=== PATIENT | male | born 1945 | race Caucasian/White ===

== ENCOUNTER 2016-11-08 09:03 | Inpatient (IN) | payer MEDICARE, MEDICAID ==
[2016-11-08] MEDS ORDERED: NALOXONE HCL INJ 2 MG/2 ML DISP.SYRIN ONE (09:34)
--- NOTE | 2016-11-08 09:42 | ER Document Report ---
ED Cardiac - General Information source: Patient TRAVEL OUTSIDE OF THE [place] IN LAST 30 DAYS: No - HPI Patient complains to provider of: Chest pain, Shortness of breath Cardiac risk factors: Diabetes, Hypertension, Dyslipidemia Associated symptoms: Other - see notes above <TRENA CINTRON - Last Filed: 11/08/16 15:21> <MARGOT LOWRY - Last Filed: 11/13/16 21:15> - General Chief Complaint: Chest Pain Stated Complaint: ALTERED MENTAL STATUS Notes: 71 year old male with history of diabetes, hypertension, hyperlipidemia, and chronic lower back pain (medicated with pain medication) presents to the ED via EMS complaining of substernal chest pain that started at approximately 0745 this morning while he was sitting. Patient had an appointment with his primary care provider, Dr. Li, for blood work this morning. Patient had taken pain medication this morning and drove to his appointment. When the patient arrived, the nurse said the patient was altered and called EMS. Patient reports that he did not take any Aspirin today. 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 (TRENA CINTRON) - Related Data Allergies/Adverse Reactions: Sulfa (Sulfonamide Antibiotics) Allergy (Unknown, Verified 05/03/15 15:41) ciprofloxacin [From Cipro] Allergy (Verified 05/03/15 15:41) Home Medications: Current Home Medications Aspirin [Aspirin 81 mg Chewable Tablet] 81 mg PO DAILY 11/08/16 [History] Cholecalciferol (Vitamin D3) [Vitamin D3 1000 Unit Tablet] 1,000 unit PO DAILY 11/08/16 [History] Glipizide [Glipizide ER] 5 mg PO DAILY 11/08/16 [History] Insulin Glargine,Hum.rec.anlog [Lantus Solostar] 37 unit SQ QHS 11/08/16 [ History] Lisinopril [Prinivil 10 mg Tablet] 10 mg PO DAILY 11/08/16 [History] Lisinopril/Hydrochlorothiazide [Lisinopril-Hctz 20-25 mg Tab] 1 tab PO DAILY [History] Multivitamin [Tab-A-Kirti] 1 tab PO DAILY 11/08/16 [History] Oxycodone HCl [Oxy-Ir 5 mg Tablet] 15 mg PO QID 11/08/16 [History] Tizanidine HCl [Zanaflex 4 Mg Tablet] 4 mg PO BIDP PRN 11/08/16 [History] Past Medical History - General Information source: Patient - Social History Smoking Status: Never Smoker Family History: Reviewed & Not Pertinent - Past Medical History Cardiac Medical History: Reports: Hx Hypercholesterolemia - meds x 10 years, Hx Hypertension - meds x 15 years, Hx Pulmonary Embolism - 2013, post-op Neurological Medical History: Endocrine Medical History: Reports: Hx Diabetes Mellitus Type 2 Musculoskeltal Medical History: Reports Hx Arthritis Skin Medical History: Reports Hx Psoriasis Psychiatric Medical History: Reports: Hx Depression - Hx of, denies issues since 2012, Hx Post Traumatic Stress Disorder, Hx Schizophrenia - no meds at present, Dx'ed after ETOH cessation Past Surgical History: Reports: Hx Abdominal Surgery - Secondary to pancreatitis , Hx Cholecystectomy - lap , Hx Tonsillectomy - Immunizations Immunizations up to date: Yes Hx Diphtheria, Pertussis, Tetanus Vaccination: Yes Hx Pneumococcal Vaccination: 08/12/11 <TRENA CINTRON - Last Filed: 11/08/16 15:21> Review of Systems - Review of Systems Constitutional: No symptoms reported EENT: No symptoms reported Cardiovascular: See HPI, Chest pain Respiratory: No symptoms reported Gastrointestinal: No symptoms reported Genitourinary: No symptoms reported Male Genitourinary: No symptoms reported Musculoskeletal: No symptoms reported Skin: No symptoms reported Hematologic/Lymphatic: No symptoms reported Neurological/Psychological: No symptoms reported -: Yes All other systems reviewed and negative <TRENA CINTRON - Last Filed: 11/08/16 15:21> Physical Exam - General General appearance: Alert In distress: None - HEENT Head: Normocephalic, Atraumatic Eyes: Normal Extraocular movements intact: Yes Pupils: PERRL Mucous membranes: Dry - Respiratory Respiratory status: No respiratory distress Breath sounds: Other - diminished lung sounds. No: Normal - Cardiovascular Rhythm: Regular Heart sounds: Normal auscultation - Abdominal Inspection: Morbidly Obese. No: Normal Distension: No distension Tenderness: Nontender - Back Back: Normal - Extremities General upper extremity: Normal inspection, Normal ROM General lower extremity: Normal inspection, Normal ROM - Neurological Neuro grossly intact: Yes Cognition: Normal Orientation: AAOx4 Mao Coma Scale Eye Opening: Spontaneous [place] Coma Scale Verbal: Oriented [place] Coma Scale Motor: Obeys Commands Mao Coma Scale Total: 15 Speech: Normal - slow to respond - Psychological Associated symptoms: Normal affect, Normal mood - Skin Skin Temperature: Warm Skin Moisture: Dry Skin Color: Normal <SAIDATRENA - Last Filed: 11/08/16 15:21> Course - Laboratory Result Diagrams: 11/08/16 09:27 11/08/16 09:27 - Consults Dr. Burgos Time consulted: 09:29 Dr. Galeano Time consulted: 14:15 Dr. Goldman Time consulted: 14:20 <TRENA CINTRON - Last Filed: 11/08/16 15:21> - Laboratory Result Diagrams: 11/08/16 09:27 11/08/16 15:45 <MARGOT LOWRY - Last Filed: 11/13/16 21:15> - Re-evaluation Re-evalutation: 11/08/16 09:57 Manual blood pressure was taken at 0938 and recorded at 96/52. (TRENA CINTRON) 11/08/16 14:26 I personally performed the services described in the documentation, reviewed and edited the documentation which was dictated to my scribe in my presence, and it accurately records my words and actions. presents emergency per minute initially via EMS from his doctor's office chief plain of altered mental status. Patient has an extensive past medical history. Initially he was saying he was having chest pain and he said he had back pain it was very poor historian as he was altered. EKG showed some ST elevation in 2-3 with flipped T waves in aVR I sent this immediately to Dr. Gleason who evaluated the EKG and said it was non-STEMI and to check for pericarditis. Further assess the patient for altered mental status was hypotensive when order CT of the head which is negative labs came back you have acute renal failure with a BUN/creatinine a 64 4.08 a potassium of 6.1. He's had a liter of fluids he's had a 750 mL out maintaining a blood pressure [address] Hernandez nephrology hypotension acute renal failure hyperkalemia chest pain with negative troponin she is on consultation spoke with Dr. Goldman is accepted patient the IMCU unit. (MARGOT LOWRY) - Vital Signs Vital signs: Temp Pulse Resp BP Pulse Ox 97.4 F 73 11 L 114/64 98 11/08/16 19:15 11/08/16 18:17 11/08/16 18:40 11/08/16 18:40 11/08/16 19:15 - Laboratory Laboratory results interpreted by me: 11/08/16 11/08/16 11/08/16 09:27 09:27 09:27 RBC 3.47 L Hgb 11.2 L Hct 33.0 L RDW 14.1 H Monocytes % 14.3 H ESR 32 H Potassium 6.1 H* Carbon Dioxide 20 L BUN 64 H Creatinine 4.08 H Est GFR ( Amer) 18 L Est GFR (Non-Af Amer) 15 L Glucose 124 H Lactic Acid Direct Bilirubin 0.5 H CK-MB (CK-2) 5.79 H C-Reactive Protein 78.4 H Total Protein 6.0 L Acetaminophen < 10 L 11/08/16 10:15 RBC Hgb Hct RDW Monocytes % ESR Potassium Carbon Dioxide BUN Creatinine Est GFR ( Amer) Est GFR (Non-Af Amer) Glucose Lactic Acid 3.4 H Direct Bilirubin CK-MB (CK-2) C-Reactive Protein Total Protein Acetaminophen - Consults Dr. Burgos Reason for consultation: 11/08/16 09:29 Patient was discussed with Dr. Burgos to discuss possible STEMI and EKG changes. Dr. Burgos asks for the EKG to be brought to him at the ICU. 11/08/16 09:45 Dr. Burgos states that this is likely not a STEMI. (TRENA CINTRON) Dr. Galeano Reason for consultation: 11/08/16 14:15 Dr. Galeano was paged. 11/08/16 Patient was discussed with Dr. Galeano and advises to admit the patient to the hospitalist. (TRENA CINTRON) Dr. Goldman Reason for consultation: 11/08/16 14:20 Patient was discussed with Dr. Goldman and agrees to admit the patient. (TRENA CINTRON) Critical Care Note - Critical Care Note Total time excluding time spent on procedures (mins): 60 <MARGOT LOWRY - Last Filed: 11/13/16 21:15> Discharge <TRENA CINTRON - Last Filed: 11/08/16 15:21> - Discharge Admitting Provider: Hospitalist Unit Admitted: IMCU <MARGOT LOWRY - Last Filed: 11/13/16 21:15> - Discharge Clinical Impression: Hyperkalemia, chest pain Acute renal failure Qualifiers: Acute renal failure type: unspecified Qualified Code(s): N17.9 - Acute kidney failure, unspecified Condition: Stable Disposition: ADMITTED INPATIENT Scribe Documentation - Scribe Written by Scribe:: Ian Chapa, 11/08/2016 0953 acting as scribe for :: Caden <TRENA CINTRON - Last Filed: 11/08/16 15:21>
[2016-11-08] MEDS ORDERED: LORAZEPAM INJ 2 MG/1 ML VIAL ONE (10:02)
[2016-11-08 10:27] LABS: ABSOLUTE EOSINOPHILS # (AUTO) 0.1 10^3/uL (0.0-0.6); ABSOLUTE LYMPHOCYTES (AUTO) 2.3 10^3/uL (0.5-4.7); ABSOLUTE MONOCYTES (AUTO) 1.3 10^3/uL (0.1-1.4); ABSOLUTE NEUT (AUTO) 5.6 10^3/uL (1.7-8.2); BASOPHILS % (AUTO) 0.5 % (0-2); EOSINOPHILS % (AUTO) 1.4 % (0-6); HEMOGLOBIN 11.2 g/dL (13.5-17.0); HGB HCT DIFFERENCE 0.6; LYMPHOCYTES % (AUTO) 24.2 % (13-45); MEAN CORPUSCULAR HEMOGLOBIN 32.2 pg (27.0-33.4); MEAN CORPUSCULAR HGB CONC 33.9 g/dL (32.0-36.0); MEAN CORPUSCULAR VOLUME 95 fl (80-97); MONOCYTES % (AUTO) 14.3 % (3-13); RED BLOOD COUNT 3.47 10^6/uL (4.35-5.55); RED CELL DISTRIBUTION WIDTH 14.1 % (11.5-14.0); SEGMENTED NEUTROPHILS % (AUTO) 59.6 % (42-78); WHITE BLOOD COUNT 9.4 10^3/uL (4.0-10.5)
[2016-11-08 11:02] LABS: ERYTHROCYTE SEDIMENTATION RATE 32 mm/hr (0-20)
[2016-11-08 11:10] LABS: ALANINE AMINOTRANSFERASE 36 U/L (21-72); ALBUMIN 3.6 g/dL (3.5-5.0); ALCOHOL < 10 mg/dL (NONE DETECTED); ALKALINE PHOSPHATASE 65 U/L (38-126); ANION GAP 19 (5-19); ASPARTATE AMINO TRANSFERASE 33 U/L (17-59); BILIRUBIN,DIRECT 0.5 mg/dL (0.0-0.4); BLOOD UREA NITROGEN 64 mg/dL (7-20); C-REACTIVE PROTEIN 78.4 mg/L (<10.0); CALCIUM 9.7 mg/dL (8.4-10.2); CARBON DIOXIDE 20 mmol/L (22-30); CHLORIDE 101 mmol/L (98-107); CREATININE RESULT 4.08 mg/dL (0.52-1.25); GLUCOSE 124 mg/dL (75-110); LIPASE 47.2 U/L (23-300); SODIUM 140.2 mmol/L (137-145)
[2016-11-08 11:11] LABS: POTASSIUM 6.1 mmol/L (3.6-5.0)
[2016-11-08 11:19] LABS: CREATINE KINASE MB 5.79 ng/mL (<4.55)
[2016-11-08 11:21] LABS: TROPONIN I < 0.012 ng/mL
[2016-11-08] MEDS ORDERED: SODIUM POLYSTYRENE SULFONATE 15 GM/60 ML PO ONE ×2 (11:23→18:00)
[2016-11-08] MEDS ORDERED: CALCIUM GLUCONATE 1000 MG/10 ML INJ IV ONE (11:24)
[2016-11-08] MEDS ORDERED: NORMAL SALINE 500 ML IV ONE ×2 (12:59→14:28)
[2016-11-08 13:54] LABS: APPEARANCE,URINE SLIGHTLY-CLOUDY; BILIRUBIN,URINE NEGATIVE (NEGATIVE); GLUCOSE, URINE NEGATIVE (NEGATIVE); KETONES,URINE NEGATIVE (NEGATIVE); LEUKOCYTE ESTERASE,URINE NEGATIVE (NEGATIVE); NITRITE,URINE NEGATIVE (NEGATIVE); PROTEIN,URINE NEGATIVE (NEGATIVE); URINE SPECIFIC GRAVITY 1.013; UROBILINOGEN,URINE NEGATIVE mg/dL (<2.0)
[2016-11-08] MEDS ORDERED: ASPIRIN 81 MG TABLET, CHEWABLE ONE (14:16)
[2016-11-08] MEDS ORDERED: NORMAL SALINE 1000 ML 1,000 ML IV ONE ×2 (15:00→15:34)
[2016-11-08 16:13] LABS: ANION GAP 16 (5-19); BLOOD UREA NITROGEN 57 mg/dL (7-20); CALCIUM 9.4 mg/dL (8.4-10.2); CARBON DIOXIDE 20 mmol/L (22-30); CHLORIDE 106 mmol/L (98-107); CREATININE RESULT 3.18 mg/dL (0.52-1.25); GLUCOSE 93 mg/dL (75-110); POTASSIUM 5.8 mmol/L (3.6-5.0); SODIUM 141.6 mmol/L (137-145)
[2016-11-08] MEDS ORDERED: VANCOMYCIN HCL 750 MG in DEXTROSE 5%-WATER 250 ML IV ONE (16:24)
[2016-11-08] MEDS ORDERED: OXYCODONE HCL IR 5 MG TABLET PO ONE (16:30)
[2016-11-08] MEDS ORDERED: NORMAL SALINE 1000 ML 1,000 ML IV PRN (16:50)
--- NOTE | 2016-11-08 17:26 | PDOC H&P/TRANSFER SUM ---
General Admission Date/PCP: 11/08/16 14:36 WNISOME SHOOK MD Transfer Date: 11/08/16 [facility] Accepting Physician: Dr Amezcua Resuscitation Status: Full Code Chief Complaint: Crushing chest pain; confusion Near-syncope Hypotension - Transfer Diagnosis (1) Septic shock Current Visit: Yes (2) Abnormal EKG Current Visit: Yes (3) Acute renal failure Current Visit: Yes (4) Altered mental status Current Visit: Yes (5) Chest pain Current Visit: Yes (6) Acute pericarditis Current Visit: Yes - Transfer Medications Home Medications: Aspirin [Aspirin 81 mg Chewable Tablet] 81 mg PO DAILY 11/08/16 Cholecalciferol (Vitamin D3) [Vitamin D3 1000 Unit Tablet] 1,000 unit PO DAILY 11/08/16 Glipizide [Glipizide ER] 5 mg PO DAILY 11/08/16 Insulin Glargine,Hum.rec.anlog [Lantus Solostar] 37 unit SQ QHS 11/08/16 Lisinopril [Prinivil 10 mg Tablet] 10 mg PO DAILY 11/08/16 Lisinopril/Hydrochlorothiazide [Lisinopril-Hctz 20-25 mg Tab] 1 tab PO DAILY Multivitamin [Tab-A-Kirti] 1 tab PO DAILY 11/08/16 Oxycodone HCl [Oxy-Ir 5 mg Tablet] 15 mg PO QID 11/08/16 Tizanidine HCl [Zanaflex 4 Mg Tablet] 4 mg PO BIDP PRN 11/08/16 Transfer Medications: Current Medications Hard Fat/Phenylephrine 40 mg/ (Dextrose) 254 mls @ 0 mls/hr IV CONTINUOUS PRN; Protocol; Titrate PRN Reason: THIS MED IS NOT "PRN" Stop: 12/08/16 16:22 Piperacillin Sod/Tazobactam (Sod 2.25 gm/ Sodium Chloride) 50 mls @ 100 mls/hr IV Q6 MIGUEL Stop: 11/15/16 17:59 Vancomycin HCl 750 mg/ (Dextrose) 250 mls @ 166.667 mls/hr IV NOW ONE Stop: 11/08/16 17:53 Sodium Chloride (Nacl 0.9% 1000 Ml Iv Soln) 1,000 mls @ 150 mls/hr IV CONTINUOUS PRN PRN Reason: THIS MED IS NOT "PRN" Stop: 12/08/16 16:49 Oxycodone HCl (Oxy-Ir 5 Mg Tablet) 15 mg PO QID MIGUEL Stop: 11/15/16 21:59 - Allergies Allergies/Adverse Reactions: Sulfa (Sulfonamide Antibiotics) Allergy (Unknown, Verified 05/03/15 15:41) ciprofloxacin [From Cipro] Allergy (Verified 05/03/15 15:41) History of Present Illness Admission Date/PCP: 11/08/16 14:36 WINSOME SHOOK MD Patient complains of: Hypotension. Confusion. Chest pain History of Present Illness: SATHISH ORNELAS is a 71 year old male With a known history of diabetes mellitus type II, pancreatitis who presented to Dr. Li's office today While in the office patient had crushing chest pain; he became extremely confused; he was found to be hypotensive with systolic of 80 He was subsequently sent to the ED for evaluation and care In the ED he was found still hypotensive; the chest pain had resolved completely ; the blood pressure fluctuated and after 3000 mL of normal saline is systolic was still 85 An EKG was performed and repeated Showed [address] elevation in 2- 3- aVF without reciprocal changes Troponins remained negative less than 0.012 An echocardiogram excluded pericardial effusion Past Medical History Cardiac Medical History: Reports: Hyperlipidema - meds x 10 years, Hypertension - meds x 15 years, Pulmonary Embolism - 2012, post-op Denies: Atrial Fibrillation, Congestive Heart Failure, Coronary Artery Disease, Myocardial Infarction, Peripheral Vascular Disease, Heart Murmur Pulmonary Medical History: Denies: Asthma, Bronchitis, Chronic Obstructive Pulmonary Disease (COPD), Pneumonia, Respiratory Failure, Sleep Apnea, Tuberculosis Neurological Medical History: Endocrine Medical History: Reports: Diabetes Mellitus Type 1, Diabetes Mellitus Type 2 Denies: Hyperthyroidism, Hypothyroidism Malignancy Medical History: Denies: Leukemia, Lung Cancer GI Medical History: Reports: Other - Pancreatitis Denies: Crohn's Disease, Gastroesophageal Reflux Disease, Hiatal Hernia Musculoskeltal Medical History: Reports: Arthritis Denies: Fibromyalgia Skin Medical History: Reports: Psoriasis Psychiatric Medical History: Reports: Depression - Hx of, denies issues since 2012, Post Traumatic Stress Disorder Denies: Bipolar Disorder Hematology: Reports: Anemia - transfusion 2012, post-op Denies: Hemophilia, Sickle Cell Disease Infectious Medical History: Denies: HIV Past Surgical History Past Surgical History: Reports: Cholecystectomy - lap , Tonsillectomy Denies: Appendectomy, Colostomy, Coronary Artery Bypass Graft, Gastric Bypass Surgery, Herniorrhaphy, Pacemaker Social History Information Source: Patient Lives with: Alone Smoking Status: Never Smoker Frequency of Alcohol Use: None Hx Recreational Drug Use: No - per Dr Shook's note, Hx of prior use of: Drugs: None Hx Prescription Drug Abuse: No - Advance Directive Resuscitation Status: Full Code Surrogate healthcare decision maker:: His sister Torri Family History Family History: Reviewed & Not Pertinent, DM, Malignancy - Lungs CTA, Other - CHF Parental Family History Reviewed: Yes Children Family History Reviewed: Yes Sibling(s) Family History Reviewed.: Yes Review of Systems Constitutional: ABSENT: chills, fever(s) Cardiovascular: PRESENT: chest pain - Was severe and crushing earlier this morning has resolved now Respiratory: ABSENT: cough, dyspnea, hemoptysis Gastrointestinal: PRESENT: abdominal pain - Suprapubic pain Musculoskeletal: ABSENT: back pain, muscle weakness Integumentary: ABSENT: rash, wounds Neurological: ABSENT: abnormal gait, abnormal speech, confusion, dizziness, focal weakness, syncope Psychiatric: ABSENT: anxiety, depression, homidical ideation, suicidal ideation Hematologic/Lymphatic: ABSENT: easy bleeding, easy bruising Physical Exam Vital Signs: Temp Pulse Resp BP Pulse Ox 98.0 F 66 10 L 114/57 L 97 11/08/16 09:33 11/08/16 09:33 11/08/16 14:40 11/08/16 14:40 11/08/16 14:40 General appearance: PRESENT: morbidly obese, other - Looks ill alert and awake Head exam: PRESENT: atraumatic, normocephalic Eye exam: PRESENT: conjunctiva pink, EOMI, PERRLA. ABSENT: scleral icterus Neck exam: ABSENT: carotid bruit, JVD, lymphadenopathy, thyromegaly Respiratory exam: PRESENT: clear to auscultation michela. ABSENT: rales, rhonchi, wheezes Cardiovascular exam: PRESENT: RRR. ABSENT: diastolic murmur, rubs, systolic murmur Pulses: PRESENT: normal dorsalis pedis pul GI/Abdominal exam: PRESENT: distended, other - Obese. ABSENT: guarding Extremities exam: PRESENT: full ROM. ABSENT: calf tenderness, clubbing, pedal edema Neurological exam: PRESENT: alert, awake, oriented to person, oriented to place , oriented to time, oriented to situation, CN II-XII grossly intact. ABSENT: motor sensory deficit Skin exam: PRESENT: dry, intact, warm. ABSENT: cyanosis, rash Results Laboratory Results: 11/08/16 15:45 11/08/16 11/08/16 15:45 15:45 Sodium 141.6 Potassium 5.8 H Chloride 106 Carbon Dioxide 20 L Anion Gap 16 BUN 57 H Creatinine 3.18 H Est GFR ( Amer) 24 L Est GFR (Non-Af Amer) 19 L Glucose 93 Lactic Acid 2.1 Calcium 9.4 11/08/16 15:45 Troponin I < 0.012 Labs- All tests 24 hr 11/08/16 11/08/16 11/08/16 09:27 09:27 09:27 WBC 9.4 RBC 3.47 L Hgb 11.2 L Hct 33.0 L MCV 95 MCH 32.2 MCHC 33.9 RDW 14.1 H Plt Count 158 Seg Neutrophils % 59.6 Lymphocytes % 24.2 Monocytes % 14.3 H Eosinophils % 1.4 Basophils % 0.5 Absolute Neutrophils 5.6 Absolute Lymphocytes 2.3 Absolute Monocytes 1.3 Absolute Eosinophils 0.1 Absolute Basophils 0.0 ESR 32 H Sodium 140.2 Potassium 6.1 H* Chloride 101 Carbon Dioxide 20 L Anion Gap 19 BUN 64 H Creatinine 4.08 H Est GFR ( Amer) 18 L Est GFR (Non-Af Amer) 15 L Glucose 124 H POC Glucose Lactic Acid Calcium 9.7 Total Bilirubin 1.0 Direct Bilirubin 0.5 H Indirect Bilirubin Not Reportable Neonat Total Bilirubin Not Reportable AST 33 ALT 36 Alkaline Phosphatase 65 CK-MB (CK-2) 5.79 H Troponin I < 0.012 C-Reactive Protein 78.4 H NT-Pro-B Natriuret Pep 377 Total Protein 6.0 L Albumin 3.6 Lipase 47.2 Urine Color Urine Appearance Urine pH Ur Specific [place] Urine Protein Urine Glucose (UA) Urine Ketones Urine Blood Urine Nitrite Urine Bilirubin Urine Urobilinogen Ur Leukocyte Esterase Urine WBC (Auto) Urine RBC (Auto) U Hyaline Cast (Auto) Urine Bacteria (Auto) Urine Mucus (Auto) Urine Ascorbic Acid Acetaminophen < 10 L Serum Alcohol < 10 11/08/16 11/08/16 11/08/16 09:36 10:15 13:39 WBC RBC Hgb Hct MCV MCH MCHC RDW Plt Count Seg Neutrophils % Lymphocytes % Monocytes % Eosinophils % Basophils % Absolute Neutrophils Absolute Lymphocytes Absolute Monocytes Absolute Eosinophils Absolute Basophils ESR Sodium Potassium Chloride Carbon Dioxide Anion Gap BUN Creatinine Est GFR ( Amer) Est GFR (Non-Af Amer) Glucose POC Glucose 107 Lactic Acid 3.4 H Calcium Total Bilirubin Direct Bilirubin Indirect Bilirubin Neonat Total Bilirubin AST ALT Alkaline Phosphatase CK-MB (CK-2) Troponin I C-Reactive Protein NT-Pro-B Natriuret Pep Total Protein Albumin Lipase Urine Color YELLOW Urine Appearance SLIGHTLY-CLOUDY Urine pH 5.0 Ur Specific [place] 1.013 Urine Protein NEGATIVE Urine Glucose (UA) NEGATIVE Urine Ketones NEGATIVE Urine Blood NEGATIVE Urine Nitrite NEGATIVE Urine Bilirubin NEGATIVE Urine Urobilinogen NEGATIVE Ur Leukocyte Esterase NEGATIVE Urine WBC (Auto) 3 Urine RBC (Auto) 1 U Hyaline Cast (Auto) 4 Urine Bacteria (Auto) TRACE Urine Mucus (Auto) RARE Urine Ascorbic Acid NEGATIVE Acetaminophen Serum Alcohol 11/08/16 11/08/16 11/08/16 15:45 15:45 15:45 WBC RBC Hgb Hct MCV MCH MCHC RDW Plt Count Seg Neutrophils % Lymphocytes % Monocytes % Eosinophils % Basophils % Absolute Neutrophils Absolute Lymphocytes Absolute Monocytes Absolute Eosinophils Absolute Basophils ESR Sodium 141.6 Potassium 5.8 H Chloride 106 Carbon Dioxide 20 L Anion Gap 16 BUN 57 H Creatinine 3.18 H Est GFR ( Amer) 24 L Est GFR (Non-Af Amer) 19 L Glucose 93 POC Glucose Lactic Acid 2.1 Calcium 9.4 Total Bilirubin Direct Bilirubin Indirect Bilirubin Neonat Total Bilirubin AST ALT Alkaline Phosphatase CK-MB (CK-2) Troponin I < 0.012 C-Reactive Protein NT-Pro-B Natriuret Pep Total Protein Albumin Lipase Urine Color Urine Appearance Urine pH Ur Specific [place] Urine Protein Urine Glucose (UA) Urine Ketones Urine Blood Urine Nitrite Urine Bilirubin Urine Urobilinogen Ur Leukocyte Esterase Urine WBC (Auto) Urine RBC (Auto) U Hyaline Cast (Auto) Urine Bacteria (Auto) Urine Mucus (Auto) Urine Ascorbic Acid Acetaminophen Serum Alcohol EKG Comments: NSR ST elevation 2-3 -avf no reciprocal changes Impressions: Head CT 11/08/16 09:50 IMPRESSION: MILD CHRONIC CHANGES OF ATROPHY AND MICROVASCULAR ISCHEMIA. NO ACUTE PROCESS. Chest X-Ray 11/08/16 12:44 IMPRESSION: Minimal bandlike opacity left retrocardiac region atelectasis or scarring. This is unchanged from 06/16/2016 Assessment & Plan - Time Time Spent: Greater than 70 Minutes - Plan Summary Plan Summary: 1- hypotension Likely to be secondary to septic shock and hypovolemic shock Patient was given extreme 3000 mL fluid bolus Richard-Synephrine drip was initiated Continue IV fluids at 150 mL/h and reevaluate patient's needs 2- sepsis Source of sepsis unclear; patient is complaining of some abdominal pain and is in acute renal failure, We will order stat CT abdomen and pelvis without contrast to exclude post obstructive uropathy And any acute abdominal pathology Noted that the patient's abdomen is extremely distended and obese and is difficult to examine 3-abnormal EKG ST elevation on precordial lead without reciprocal changes Echo performed showed no pericardial effusion and normal EF troponins negative <0.015 ? acute pericarditis secondary to acute renal failure transfer to higher level of care
[2016-11-08] MEDS ORDERED: PIPERACILLIN SODIUM/TAZOBACTAM 2.25 GM in NORMAL SALINE 50 ML IV SCH (18:00)
[2016-11-08] MEDS ORDERED: DEXTROSE 5%-WATER 250 ML with PHENYLEPHRINE HCL 40 MG IV PRN ×2 (18:00)
--- NOTE | 2016-11-08 18:03 | Operative Report ---
Operative Report DATE OF SURGERY: 11/08/16 PREOPERATIVE DIAGNOSIS: Hypotension, critical need for central venous access POSTOPERATIVE DIAGNOSIS: Same OPERATION: Attempted right subclavian central venous catheter placement. Right femoral triple-lumen central venous catheter placement. SURGEON: OMID AJY ANESTHESIA: Local TISSUE REMOVED OR ALTERED: None COMPLICATIONS: None ESTIMATED BLOOD LOSS: 40 mL INTRAOPERATIVE FINDINGS: Able to cannulate right subclavian vein but unable to feed guidewire. PROCEDURE: Informed consent was obtained. Procedure was done at patient's bedside. Patient's right chest and neck were prepped and draped in usual sterile fashion. Local anesthetic was administered. The right subclavian vein was entered with a needle but I was unable to pass guidewire. I was able to aspirate blood intermittently varying with his respirations. The needle was withdrawn and repositioned and I aspirated air. It is possible that the needle was not seated securely onto the syringe when I aspirated air. Patient had no respiratory symptoms. Stat portable chest x-ray demonstrated no evidence of pneumothorax. His lungs were clear with equal breath sounds with no crepitus. And the patient continued to have no respiratory symptoms. This site was abandoned and the patient's right groin was prepped and draped in usual sterile fashion. Local anesthetic was injected. The right femoral vein was entered without difficulty. Right femoral triple-lumen central venous catheter was placed via the Seldinger technique. It withdrew blood and flushed easily. IV bag was attached and IV fluids ran easily through the line. It was sutured in place. Dressings were applied. Patient tolerated procedure well with no apparent complications.
--- NOTE | 2016-11-08 18:05 | XCELERA REPORT ---
[address] [address] Transthoracic Echocardiogram Report Name: SATHISH ORNELAS Age: 71 yrs Gender: Male : 1945 Patient Status: Inpatient Patient Location: \S\10\S\A Study Date: 11/08/2016 04:20 PM Height: 67 in Weight: 230 lb BSA: 2.1 m2 Procedure: A two-dimensional transthoracic echocardiogram with color flow and Doppler was performed. Study Quality: Fair. Reason For Study: pericarditis History: pericarditis. Ordering Physician: CHARLOTTE ANDRADE Performed By: Angela Mahoney Interpretation Summary The left ventricle is normal in size. There is normal left ventricular wall thickness. Left ventricular systolic function is normal. LV EF is > than 65%.% Doppler measurements suggest impaired left ventricular relaxation, which is associated with grade I/IV or mild diastolic dysfunction The left ventricular wall motion is normal. There is no thrombus. The right ventricle is grossly normal size. The right ventricle is not well visualized secondary to technical limitations The right atrium is normal. The left atrial size is normal. The interatrial septum is intact with no evidence for an atrial septal defect. There is no evidence of mitral valve prolapse. There is no mitral valve stenosis. There is a mild to moderate amount of mitral regurgitation There is no aortic valve stenosis There is no LVOT obstruction. No aortic regurgitation is present. There is no tricuspid stenosis. There is a mild amount of tricuspid regurgitation There is moderate pulmonary hypertension by echo RVSP is 48 to 53 mm of Hg with RA mean of 5 to 10. There is no pericardial effusion. MMode/2D Measurements \T\ Calculations RVDd: 3.6 cm LVIDd: 5.2 cm FS: 48.9 % Ao root diam: 2.7 cm IVSd: 1.1 cm LVIDs: 2.7 cm EDV(Teich): 129.9 ml LVPWd: 1.1 cm ESV(Teich): 26.1 ml Ao root area: 5.9 cm2 EF(Teich): 79.9 % LA dimension: 3.9 cm Doppler Measurements \T\ Calculations MV E max bam: MV P1/2t max bam: Ao V2 max: LV V1 max P.2 cm/sec 125.2 cm/sec 176.3 cm/sec 7.0 mmHg MV A max bam: MV P1/2t: 80.2 msec Ao max PG: LV V1 max: 143.8 cm/sec 12.4 mmHg 132.7 cm/sec MV E/A: 0.87 MVA(P1/2t): 2.7 cm2 MV dec slope: 457.4 cm/sec2 MV dec time: 0.28 sec PA V2 max: PI end-d bam: TR max bam: 87.4 cm/sec 168.3 cm/sec 324.6 cm/sec PA max PG: TR max P.1 mmHg 42.1 mmHg Left Ventricle The left ventricle is normal in size. There is normal left ventricular wall thickness. Left ventricular systolic function is normal. LV EF is > than 65%.%. Doppler measurements suggest impaired left ventricular relaxation, which is associated with grade I/IV or mild diastolic dysfunction. The left ventricular wall motion is normal. There is no thrombus. There is no ventricular septal defect visualized. Right Ventricle The right ventricle is grossly normal size. The right ventricle is not well visualized secondary to technical limitations. Atria The right atrium is normal. The left atrial size is normal. The interatrial septum is intact with no evidence for an atrial septal defect. Mitral Valve There is no evidence of mitral valve prolapse. There is no vegetation seen on the mitral valve. There is no mitral valve stenosis. There is a mild to moderate amount of mitral regurgitation. Aortic Valve There is no aortic valvular vegetation. There is no aortic valve stenosis. There is no LVOT obstruction. No aortic regurgitation is present. Tricuspid Valve There is no tricuspid stenosis. There is a mild amount of tricuspid regurgitation. There is moderate pulmonary hypertension by echo. RVSP is 48 to 53 mm of Hg with RA mean of 5 to 10. Pulmonic Valve There is no pulmonic valvular stenosis. There is a trace amount of pulmonic regurgitation. Great Vessels The aortic root is normal size. The inferior vena cava appeared normal and decreased > 50% with respiration (RAP 5-10 mmHg). Effusions There is no pericardial effusion. : CHARLOTTE ANDRADE > Melva Bates
[2016-11-08 19:15] VITALS: BP 114/64
--- NOTE | 2016-11-08 20:44 | EKG REPORT ---
SEVERITY:- ABNORMAL ECG - SINUS RHYTHM BORDERLINE ST ELEVATION, INFERIOR LEADS : Confirmed by: Kerline Gleason 08-Nov-2016 20:43:48
--- NOTE | 2016-11-08 20:44 | EKG REPORT ---
SEVERITY:- BORDERLINE ECG - SINUS RHYTHM BORDERLINE ST ELEVATION, INFERIOR LEADS : Confirmed by: Kerline Gleason 08-Nov-2016 20:43:57
[2016-11-08] MEDS ORDERED: OXYCODONE HCL IR 5 MG TABLET PO SCH (22:00)
== END 2016-11-08 19:00 | disposition short-term general hospital (02) | DRG 871 ==
LOC: ER 09:03 → EH 14:36
PROVIDERS: ADMIT Internal Medicine; ATTEND Internal Medicine
PROC: 06HM33Z Insertion of Infusion Device into Right Femoral Vein, Percutaneous Approach (ICD-10-PCS; principal; 2016-11-08)
DX: A41.9 Sepsis, unspecified organism (principal); R65.21 Severe sepsis with septic shock; N17.9 Acute kidney failure, unspecified; I30.9 Acute pericarditis, unspecified; E11.9 Type 2 diabetes mellitus without complications; E78.5 Hyperlipidemia, unspecified; I10 Essential (primary) hypertension; M19.90 Unspecified osteoarthritis, unspecified site; L40.9 Psoriasis, unspecified; F32.9 Major depressive disorder, single episode, unspecified; F43.10 Post-traumatic stress disorder, unspecified; E66.01 Morbid (severe) obesity due to excess calories; G89.29 Other chronic pain; M54.5 Low back pain; Z60.2 Problems related to living alone; Z79.82 Long term (current) use of aspirin; Z79.899 Other long term (current) drug therapy; Z88.2 Allergy status to sulfonamides; Z88.3 Allergy status to other anti-infective agents; Z79.4 Long term (current) use of insulin; Z86.711 Personal history of pulmonary embolism; Z90.49 Acquired absence of other specified parts of digestive tract; Z83.3 Family history of diabetes mellitus; Z80.1 Family history of malignant neoplasm of trachea, bronchus and lung
CPT/HCPCS: 36415; 70450; 71010; 71020; 80048; 80053; 80307; 81001; 82553; 82962; 83605; 83690; 83880; 84484; 85025; 85652; 86140; 93005; 93010; 93306; C1751; J0610; J2310; J7030; J7040

== ENCOUNTER 2017-03-19 23:50 | Emergency (ER) | payer MEDICARE ==
[2017-03-20 00:10] VITALS: BP 108/59
[2017-03-20] MEDS ORDERED: DEXAMETHASONE SOD PHOS INJ 10 MG/1 ML VIAL IM ONE (02:11)
--- NOTE | 2017-03-20 02:12 | ER Document Report ---
ED Skin Rash/Insect Bite/Abscs - General Mode of Arrival: Ambulatory Information source: Patient TRAVEL OUTSIDE OF THE [place] IN LAST 30 DAYS: No - HPI Onset: Other - Refer to HPI notes Similar symptoms previously: No Recently seen / treated by doctor: No - General Chief Complaint: Skin Problem Stated Complaint: RASH Time Seen by Provider: 03/20/17 01:42 Notes: Patient is a 61-year-old male presenting to the emergency department for a rash. Patient states he was alleviating a week ago and thinks he came in contact with some poison zandra. Patient states that his symptoms have gotten worse over the past few days. Patient had a rash to forearms bilaterally as well as his right knee. Patient is a type II diabetic and takes both metformin and insulin. Patient also has hypertension and being medicated for such. Patient has chronic back pain and knee problems and prescribed oxycodone 15 mg from his pain management doctor. PCP Dr. Li ([facility]) - Related Data Allergies/Adverse Reactions: Sulfa (Sulfonamide Antibiotics) Allergy (Unknown, Verified 05/03/15 15:41) ciprofloxacin [From Cipro] Allergy (Verified 05/03/15 15:41) Past Medical History - General Information source: Patient - Social History Smoking Status: Never Smoker Family History: DM, Malignancy - Lungs CTA, Other - CHF Patient has suicidal ideation: No Patient has homicidal ideation: No - Past Medical History Cardiac Medical History: Reports: Hx Hypercholesterolemia - meds x 10 years, Hx Hypertension - meds x 15 years, Hx Pulmonary Embolism - 2013, post-op Neurological Medical History: Endocrine Medical History: Reports: Hx Diabetes Mellitus Type 1, Hx Diabetes Mellitus Type 2 Musculoskeltal Medical History: Reports Hx Arthritis Skin Medical History: Reports Hx Psoriasis Psychiatric Medical History: Reports: Hx Depression - Hx of, denies issues since 2012, Hx Post Traumatic Stress Disorder, Hx Schizophrenia - no meds at present, Dx'ed after ETOH cessation Past Surgical History: Reports: Hx Abdominal Surgery - Secondary to pancreatitis , Hx Cholecystectomy - lap , Hx Tonsillectomy - Immunizations Immunizations up to date: Yes Hx Diphtheria, Pertussis, Tetanus Vaccination: Yes Hx Pneumococcal Vaccination: 08/12/11 Review of Systems - Review of Systems Constitutional: No symptoms reported EENT: No symptoms reported Cardiovascular: No symptoms reported Respiratory: No symptoms reported Gastrointestinal: No symptoms reported Genitourinary: No symptoms reported Male Genitourinary: No symptoms reported Musculoskeletal: No symptoms reported Skin: See HPI, Rash Hematologic/Lymphatic: No symptoms reported Neurological/Psychological: No symptoms reported -: Yes All other systems reviewed and negative Physical Exam - Vital signs Interpretation: Normal - Vital signs Vitals: Temp Pulse Resp BP Pulse Ox 97.6 F 76 20 108/59 L 97 03/20/17 00:08 03/20/17 00:08 03/20/17 00:08 03/20/17 00:08 03/20/17 00:08 - Notes Notes: GENERAL: Alert, interacts well. Mild distress. HEAD: Normocephalic, atraumatic. EYES: Appear normal. Pupils equal, round, and reactive to light. ENT: Moist mucus membranes, tongue midline. NECK: Full range of motion. Supple. Trachea midline. LUNGS: Clear to auscultation bilaterally, no wheezes, rales, or rhonchi. No respiratory distress. HEART: Regular rate and rhythm. No murmurs, gallops, or rubs. ABDOMEN: Soft, non-tender. Non-distended. Normal bowel sounds. EXTREMITIES: Moves all 4 extremities spontaneously. Normal strength. No edema. NEUROLOGICAL: Alert and oriented x3. Normal speech. No focal neurological deficits. GSC 15. PSYCH: Normal affect, normal mood. SKIN: Warm, dry, normal turgor. Extensive contact dermatitis of [place] poison zandra bilateral forearms and left lower extremity with weeping lesions. No crepitus, necrosis or sign of infection. (ALMA NAJERA) Discharge - Discharge Clinical Impression: severe bilateral contact dermatitis Condition: Stable Disposition: HOME, SELF-CARE Additional Instructions: Poison Zandra Poison zandra and poison oak can cause an itchy rash. This is called contact dermatitis. It's an allergy to an oil in the plant's leaves. The oil can be spread from clothing to skin, from pets to humans, or from one spot on the body to another. Washing thoroughly with soap immediately after exposure can prevent the rash. (Clothing should be washed as well.) If the oil is not removed, an itchy rash develops a few days after the exposure. Blisters may develop. Two to three weeks may be required for healing. Generally, treatment consists of: (1) an immediate thorough washing with soap to remove the oil, (2) application of a cortisone cream, and (3) antihistamines for itching. If the reaction is particularly severe, oral cortisone medicine may be required. If there are oozing areas, these can be soaked in epsom salts or Janee's solution. Call the doctor if the rash worsens despite treatment, or if signs of infection occur such as spreading redness, red streaks, swollen glands, swelling , or fever. Follow-up with your primary care physician in 2-3 days return for increasing worsening or new symptoms Prescriptions: Prednisone [Deltasone 20 mg Tablet] 3 tab PO DAILY 5 Days Scribe Attestation: 03/20/17 02:13 I personally performed the services described in the documentation reviewed the documentation recorded by my scribe in my presence and it accurately and completely records my words and actions (MARGOT LOWRY) Scribe Documentation - Scribe Written by Ian:: Ian Wise, 03/20/17 5:10 acting as scribe for :: Caden
== END 2017-03-20 02:35 | disposition home or self-care (01) ==
LOC: ER 23:50
DX: L25.9 Unspecified contact dermatitis, unspecified cause (principal); E11.9 Type 2 diabetes mellitus without complications; Z79.84 Long term (current) use of oral hypoglycemic drugs; Z79.4 Long term (current) use of insulin; E78.00 Pure hypercholesterolemia, unspecified; I10 Essential (primary) hypertension; Z88.2 Allergy status to sulfonamides; Z86.711 Personal history of pulmonary embolism; Z88.3 Allergy status to other anti-infective agents; Z90.49 Acquired absence of other specified parts of digestive tract
CPT/HCPCS: 99283; 96372; J1100

== ENCOUNTER 2017-04-08 23:46 | Emergency (ER) | payer MEDICARE ==
[2017-04-09] MEDS ORDERED: FAMOTIDINE 20 MG TABLET PO ONE (00:38)
[2017-04-09] MEDS ORDERED: PREDNISONE 20 MG TABLET PO ONE (00:38)
--- NOTE | 2017-04-09 00:40 | ER Document Report ---
ED General - General Chief Complaint: Skin Problem Stated Complaint: POSSIBLE RASH ON ARMS Time Seen by Provider: 04/09/17 00:29 Mode of Arrival: Ambulatory Information source: Patient TRAVEL OUTSIDE OF THE [place] IN LAST 30 DAYS: No - HPI Notes: PT PRESENTS WITH BILATERAL PAINFUL UTICARIAL RASHES OF THE UE FROM WRIST TO AC. THE RASH IS HEAVILY SCAPPED AND CRUSTED OVER. PT STATES HE WAS SEEN HERE BEFORE FOR THE SAME PROBLEM, BUT THE PRESCRIPTIONS DID NOT PROVIDE RELIEF. PT ADMITS TO PUTTING ALCOHOL AND OTHER CHEMICALS ON THE RASH TO TRY AND CLEAR IT UP. Patient was seen on 03/19/17 with the same rash and was given prednisone for several days which did help the rash somewhat. After running out of prednisone the rash seemed to recur. Patient denies any difficulty breathing or oropharyngeal swelling or fever or chills. The patient does report that he has not had his blood drawn in some time, and he has a history of uremia and renal failure. The patient does report having a possible exposure to poison neris prior to the onset of the rash. - Related Data Allergies/Adverse Reactions: Sulfa (Sulfonamide Antibiotics) Allergy (Unknown, Verified 05/03/15 15:41) ciprofloxacin [From Cipro] Allergy (Verified 05/03/15 15:41) Past Medical History - General Information source: Patient - Social History Smoking Status: Former Smoker Frequency of alcohol use: None Drug Abuse: None Family History: DM, Malignancy - Lungs CTA, Other - CHF Patient has suicidal ideation: No Patient has homicidal ideation: No - Past Medical History Cardiac Medical History: Reports: Hx Hypercholesterolemia - meds x 10 years, Hx Hypertension - meds x 15 years, Hx Pulmonary Embolism - 2012, post-op Denies: Hx Atrial Fibrillation, Hx Congestive Heart Failure, Hx Coronary Artery Disease, Hx Heart Attack, Hx Peripheral Vascular Disease, Hx Heart Murmur Pulmonary Medical History: Denies: Hx Asthma, Hx Bronchitis, Hx COPD, Hx Pneumonia, Hx Respiratory Failure, Hx Sleep Apnea, Hx Tuberculosis Neurological Medical History: Endocrine Medical History: Reports: Hx Diabetes Mellitus Type 1, Hx Diabetes Mellitus Type 2. Denies: Hx Graves' Disease, Hx Hyperthyroidism, Hx Hypothyroidism Renal/ Medical History: Denies: Hx Peritoneal Dialysis Malignancy Medical History: Denies Hx Leukemia, Denies Hx Lung Cancer GI Medical History: Denies: Hx Crohn's Disease, Hx Gastroesophageal Reflux Disease, Hx Hiatal Hernia, Hx Irritable Bowel, Hx Liver Failure, Hx Ulcer Musculoskeltal Medical History: Reports Hx Arthritis, Denies Hx Fibromyalgia, Denies Hx Muscular Dystrophy Skin Medical History: Reports Hx Psoriasis Psychiatric Medical History: Reports: Hx Depression - Hx of, denies issues since 2012, Hx Post Traumatic Stress Disorder, Hx Schizophrenia - no meds at present, Dx'ed after ETOH cessation Denies: Hx Bipolar Disorder Traumatic Medical History: Denies: Hx Fractures Infectious Medical History: Denies: Hx HIV Past Surgical History: Reports: Hx Abdominal Surgery - Secondary to pancreatitis , Hx Cholecystectomy - lap , Hx Tonsillectomy. Denies: Hx Appendectomy, Hx Bowel Surgery, Hx Colostomy, Hx Coronary Artery Bypass Graft, Hx Gastric Bypass Surgery, Hx Herniorrhaphy, Hx Pacemaker - Immunizations Immunizations up to date: Yes Hx Diphtheria, Pertussis, Tetanus Vaccination: Yes Hx Pneumococcal Vaccination: 08/12/11 Review of Systems - Review of Systems Notes: REVIEW OF SYSTEMS: CONSTITUTIONAL : Denies fever, chills, or sweats. Denies recent illness. EENT: Denies eye, ear, throat, or mouth pain or symptoms. Denies nasal or sinus congestion or discharge. Denies throat, tongue, or mouth swelling or difficulty swallowing. CARDIOVASCULAR: Denies chest pain. Denies palpitations or racing or irregular heart beat. Denies ankle edema. RESPIRATORY: Denies cough, cold, or chest congestion. Denies shortness of breath, difficulty breathing, or wheezing. GASTROINTESTINAL: Denies abdominal pain or distention. Denies nausea, vomiting , or diarrhea. Denies blood in vomitus, stools, or per rectum. Denies black, tarry stools. Denies constipation. GENITOURINARY: Denies difficulty urinating, painful urination, burning, frequency, blood in urine, or discharge. MUSCULOSKELETAL: Denies back or neck pain or stiffness. Denies joint pain or swelling. SKIN: Reports rash worse on both arms, mild on the knees. HEMATOLOGIC : Denies easy bruising or bleeding. LYMPHATIC: Denies swollen, enlarged glands. NEUROLOGICAL: Denies confusion or altered mental status. Denies passing out or loss of consciousness. Denies dizziness or lightheadedness. Denies headache. Denies weakness or paralysis or loss of use of either side. Denies problems with gait or speech. Denies sensory loss, numbness, or tingling. Denies seizures. PSYCHIATRIC: Denies anxiety or stress. Denies depression, suicidal ideation, or homicidal ideation. ALL OTHER SYSTEMS REVIEWED AND NEGATIVE. Dictation was performed using [email or web address] voice recognition software Physical Exam - Vital signs Vitals: Pulse Resp BP Pulse Ox 88 16 134/79 H 96 04/08/17 23:52 04/08/17 23:52 04/08/17 23:52 04/08/17 23:52 - Notes Notes: PHYSICAL EXAMINATION: GENERAL: Well-appearing, well-nourished and in no acute distress. HEAD: Atraumatic, normocephalic. EYES: Pupils equal round and reactive to light, extraocular movements intact, sclera anicteric, conjunctiva are normal. ENT: Nares patent, oropharynx clear without exudates. Moist mucous membranes. NECK: Normal range of motion, supple without lymphadenopathy LUNGS: Breath sounds clear to auscultation bilaterally and equal. No wheezes rales or rhonchi. HEART: Regular rate and rhythm without murmurs ABDOMEN: Soft, nontender, nondistended abdomen. No guarding, no rebound. No masses appreciated. Musculoskeletal: Normal range of motion, no pitting or edema. No cyanosis. NEUROLOGICAL: Cranial nerves grossly intact. Normal speech, normal gait. Normal sensory, motor exams PSYCH: Normal mood, normal affect. SKIN: Dermatitis with excoriations on the forearms extending from the wrist up to the mid humerus. No evidence for cellulitis or abscess. Distally the patient has good sensation and capillary refill and pulses. Patient also has a very minimal dermatitis on the right greater than left knee. No obvious extensive extensor surface dermatitis that would suggest psoriasis. Course - Re-evaluation Re-evalutation: 04/09/17 02:58 Patient was given Pepcid and prednisone. Patient was advised not to put alcohol or any other agents upon the rash with the exception of the cortisone cream or a skin moisturizer which he will try in certain areas to see if he is reacting to the skin moisturizer. No evidence for uremic failure or systemic allergic reaction or cellulitis or abscess. - Vital Signs Vital signs: Temp Pulse Resp BP Pulse Ox 97.4 F 88 16 134/79 H 96 04/08/17 23:53 04/08/17 23:52 04/08/17 23:52 04/08/17 23:52 04/08/17 23:52 - Laboratory Result Diagrams: 04/09/17 01:57 04/09/17 01:57 Laboratory results interpreted by me: 04/09/17 04/09/17 01:57 01:57 RBC 3.55 L Hgb 11.6 L Hct 34.7 L MCV 98 H Eosinophils % 6.2 H Sodium 146.1 H Chloride 110 H BUN 36 H Creatinine 1.40 H Est GFR (Non-Af Amer) 50 L Glucose 300 H Discharge - Discharge Clinical Impression: Dermatitis Condition: Stable Disposition: HOME, SELF-CARE Instructions: Topical Steroid Cream or Ointment ([facility]), Corticosteroid Medication ([facility]), Contact Dermatitis ([facility]) Additional Instructions: You may take Benadryl as directed for any itching. Apply only steroid cream to the rash or you may put a moisturizer on the rash. Prescriptions: Hydrocortisone [Cortisone] 99 gm TP BIDP PRN #1 lotion PRN Reason: Prednisone [Deltasone 20 mg Tablet] 2 tab PO DAILY 7 Days tablet
[2017-04-09 02:12] LABS: ABSOLUTE EOSINOPHILS # (AUTO) 0.3 10^3/uL (0.0-0.6); ABSOLUTE LYMPHOCYTES (AUTO) 1.4 10^3/uL (0.5-4.7); ABSOLUTE MONOCYTES (AUTO) 0.5 10^3/uL (0.1-1.4); ABSOLUTE NEUT (AUTO) 2.4 10^3/uL (1.7-8.2); BASOPHILS % (AUTO) 0.5 % (0-2); EOSINOPHILS % (AUTO) 6.2 % (0-6); HEMATOCRIT 34.7 % (37.9-51.0); HEMOGLOBIN 11.6 g/dL (13.5-17.0); HGB HCT DIFFERENCE 0.1; LYMPHOCYTES % (AUTO) 30.6 % (13-45); MEAN CORPUSCULAR HEMOGLOBIN 32.8 pg (27.0-33.4); MEAN CORPUSCULAR HGB CONC 33.5 g/dL (32.0-36.0); MEAN CORPUSCULAR VOLUME 98 fl (80-97); MONOCYTES % (AUTO) 11.5 % (3-13); RED BLOOD COUNT 3.55 10^6/uL (4.35-5.55); RED CELL DISTRIBUTION WIDTH 13.4 % (11.5-14.0); SEGMENTED NEUTROPHILS % (AUTO) 51.2 % (42-78); WHITE BLOOD COUNT 4.7 10^3/uL (4.0-10.5)
[2017-04-09 02:24] LABS: ANION GAP 14 (5-19); BLOOD UREA NITROGEN 36 mg/dL (7-20); CALCIUM 9.1 mg/dL (8.4-10.2); CARBON DIOXIDE 22 mmol/L (22-30); CHLORIDE 110 mmol/L (98-107); GLUCOSE 300 mg/dL (75-110); POTASSIUM 4.9 mmol/L (3.6-5.0); SODIUM 146.1 mmol/L (137-145)
[2017-04-09 03:25] VITALS: BP 118/64
== END 2017-04-09 03:21 | disposition home or self-care (01) ==
LOC: ER 23:46
DX: L30.9 Dermatitis, unspecified (principal); E11.9 Type 2 diabetes mellitus without complications; I10 Essential (primary) hypertension; Z88.2 Allergy status to sulfonamides; Z88.1 Allergy status to other antibiotic agents; Z87.891 Personal history of nicotine dependence
CPT/HCPCS: 99282; 36415; 85025; 80048; A9270 ×2; J7512

== ENCOUNTER 2017-08-18 23:23 | Inpatient (IN) | payer MEDICARE, OTHER ==
[2017-08-18] MEDS ORDERED: ONDANSETRON HCL INJ/PF 4 MG/2 ML SDV ONE (23:48)
[2017-08-18] MEDS ORDERED: NORMAL SALINE 1000 ML 1,000 ML IV ONE ×2 (23:50)
[2017-08-18] MEDS ORDERED: MORPHINE SULFATE 10 MG/ML INJ IV ONE (23:51)
[2017-08-18] MEDS ORDERED: ONDANSETRON HCL INJ/PF 4 MG/2 ML SDV IV ONE (23:51)
--- NOTE | 2017-08-19 | ER Document Report ---
Doctor's Note Notes: 08/18/17 23:58 Patient presents extremely ill in appearance, distended, rigid abdomen, diffuse guarding throughout. Patient is tachycardic, tachypneic and hypertensive. He has had diarrhea and abdominal pain progressively worsening over the last 3 days. I am extremely concerned the patient may have either acute ischemic bowel or an acute bowel perforation. Patient will immediately go for stat CT scan of the abdomen and pelvis IV contrast. Given the acuity of this patient's presentation I am not willing to wait for creatinine to result as I believe the risks of further delay in care far outweigh possible benefits. The surgeon on- call Dr. Hair has also been called to come assess the patient emergently as the patient has an acute abdomen. 08/19/17 03:37 CT is apparently unremarkable. Patient does have an elevated lactate 3.6. Remains intermittently tachycardic and continues to have moderate abdominal pain. The surgeon has been consulted to assess the patient and does not feel there is any acute surgical process. Patient will be hospitalized for observation and serial abdominal exams as well as recheck of labs.
--- NOTE | 2017-08-19 00:01 | ER Document Report ---
ED General - General Chief Complaint: Abdominal Pain Stated Complaint: BLOOD SUGAR PROBLEMS,BODY PAIN Time Seen by Provider: 08/18/17 23:44 Notes: Patient is a 72-year-old male that comes emergency department for chief complaint of abdominal pain that radiates to his back, vomiting 6, he states he has had diarrhea and general abdominal pain for several days but today pain became severe prompting him to go to his friend's house who called EMS. He denies hematemesis or hematochezia. He denies fever. He is not on a blood thinner. Past medical history of hypertension, insulin-dependent diabetes, cholecystectomy, pancreatitis. He denies CAD or CHF. He states he has been taking his insulin at home. He states he does not drink alcohol and he formerly smoked. TRAVEL OUTSIDE OF THE [place] IN LAST 30 DAYS: No - Related Data Allergies/Adverse Reactions: Sulfa (Sulfonamide Antibiotics) Allergy (Unknown, Verified 05/03/15 15:41) ciprofloxacin [From Cipro] Allergy (Verified 05/03/15 15:41) Past Medical History - General Information source: Patient - Social History Smoking Status: Former Smoker Frequency of alcohol use: None Drug Abuse: None Lives with: Family Family History: DM, Malignancy - Lungs CTA, Other - CHF - Past Medical History Cardiac Medical History: Reports: Hx Hypercholesterolemia - meds x 10 years, Hx Hypertension - meds x 15 years, Hx Pulmonary Embolism - 2013, post-op Denies: Hx Atrial Fibrillation, Hx Congestive Heart Failure, Hx Coronary Artery Disease, Hx Heart Attack, Hx Peripheral Vascular Disease, Hx Heart Murmur Pulmonary Medical History: Denies: Hx Asthma, Hx Bronchitis, Hx COPD, Hx Pneumonia, Hx Respiratory Failure, Hx Sleep Apnea, Hx Tuberculosis Neurological Medical History: Endocrine Medical History: Reports: Hx Diabetes Mellitus Type 2. Denies: Hx Graves' Disease, Hx Hyperthyroidism, Hx Hypothyroidism Renal/ Medical History: Denies: Hx Peritoneal Dialysis Malignancy Medical History: Denies Hx Leukemia, Denies Hx Lung Cancer GI Medical History: Reports: Hx Pancreatitis - 2013 & exc pseudocyst. Denies: Hx Crohn's Disease, Hx Gastroesophageal Reflux Disease, Hx Hiatal Hernia, Hx Irritable Bowel, Hx Liver Failure, Hx Ulcer Musculoskeltal Medical History: Reports Hx Arthritis, Denies Hx Fibromyalgia, Denies Hx Muscular Dystrophy Skin Medical History: Reports Hx Psoriasis Psychiatric Medical History: Reports: Hx Depression - Hx of, denies issues since 2012, Hx Post Traumatic Stress Disorder, Hx Schizophrenia - no meds at present, Dx'ed after ETOH cessation Denies: Hx Bipolar Disorder Traumatic Medical History: Denies: Hx Fractures Infectious Medical History: Denies: Hx HIV Past Surgical History: Reports: Hx Abdominal Surgery - Secondary to pancreatitis , Hx Cholecystectomy - lap , Hx Tonsillectomy. Denies: Hx Appendectomy, Hx Bowel Surgery, Hx Colostomy, Hx Coronary Artery Bypass Graft, Hx Gastric Bypass Surgery, Hx Herniorrhaphy, Hx Pacemaker - Immunizations Immunizations up to date: Yes Hx Diphtheria, Pertussis, Tetanus Vaccination: Yes Hx Pneumococcal Vaccination: 08/12/11 Review of Systems - Review of Systems Constitutional: No symptoms reported EENT: No symptoms reported Cardiovascular: No symptoms reported Respiratory: No symptoms reported Gastrointestinal: See HPI Genitourinary: No symptoms reported Male Genitourinary: No symptoms reported Musculoskeletal: No symptoms reported Skin: No symptoms reported Hematologic/Lymphatic: No symptoms reported Neurological/Psychological: No symptoms reported Physical Exam - Vital signs Vitals: Temp Pulse Resp BP Pulse Ox 98.1 F 130 H 24 H 150/129 H 98 08/18/17 23:30 08/18/17 23:30 08/18/17 23:30 08/18/17 23:30 08/18/17 23:30 Interpretation: Normal - General General appearance: Alert, Anxious In distress: Severe - HEENT Head: Normocephalic, Atraumatic Eyes: Normal Pupils: PERRL - Respiratory Respiratory status: No respiratory distress Chest status: Nontender Breath sounds: Normal. No: Decreased air movement, Wheezing Chest palpation: Normal - Cardiovascular Rhythm: Regular, Tachycardia Heart sounds: Normal auscultation, S1 appreciated, S2 appreciated Murmur: No - Abdominal Inspection: Other - Patient with large midline abdominal scar, diastases recti, no overt concerning hernias or other abnormalities Bowel sounds: Normal Tenderness: Tender - Diffusely tender abdomen with guarding - Back Back: Normal, Nontender - Extremities General upper extremity: Normal inspection, Nontender, Normal color, Normal ROM , Normal temperature General lower extremity: Normal inspection, Nontender, Normal color, Normal ROM , Normal temperature, Normal weight bearing. No: Yolanda's sign - Neurological Neuro grossly intact: Yes Cognition: Normal Orientation: AAOx4 Rescue Coma Scale Eye Opening: Spontaneous Mao Coma Scale Verbal: Oriented Rescue Coma Scale Motor: Obeys Commands Mao Coma Scale Total: 15 Speech: Normal Motor strength normal: LUE, RUE, LLE, RLE Sensory: Normal - Skin Skin Temperature: Warm Skin Moisture: Dry Skin Color: Flushed Course - Re-evaluation Re-evalutation: On evaluation patient moaning, slightly pale, tachycardic, has distended region very tender abdomen, appears very ill. Concern because of hypertension for possible aortic dissection, differentials also include perforated viscus, ischemic bowel. Placed 2 large IVs, giving IV fluids, pain medicine, nausea medication. I asked Dr. Powell to evaluate patient at bedside. He recommends CT abd/pelvis with IV contrast without waiting for labs due to emergent and critical appearance of patient. 08/19/17 00:00 Called surgeon on-call Dr. Hair, reported to him patient's condition and presentation to make him aware. After IV fluids, pain medication, tachycardia improved, patient clinically appeared improved although he still has a tender abdomen and appears generally uncomfortable. CBC shows mild leukocytosis with no shift. Chemistry generally unremarkable with only mild hyperglycemia. No acidosis. Lactic acid is elevated at 3.9. CAT scan of the abdomen and pelvis resulted but only shows epiploic appendagitis without any obvious acute surgical abnormalities. I am surprised at this finding based on his presentation. Discussed with Dr. Powell. Called and spoke with Dr. Hair, he came and evaluated the patient. He feels the patient should be given antibiotics and IV fluids, and he should be admitted , recommends discussion with hospitalist with surgical consult. Discussed with Dr. Saldivar, internal medicine, he does not accept for admission and feels that the patient should be admitted to the surgical service. I discussed with Dr. Hair who will accept to the surgical service. Discussed with patient and he states agreement with this plan. - Vital Signs Vital signs: Temp Pulse Resp BP Pulse Ox 98.1 F 130 H 29 H 178/134 H 99 08/18/17 23:30 08/18/17 23:30 08/19/17 00:01 08/18/17 23:45 08/19/17 00:01 - Laboratory Result Diagrams: 08/19/17 00:01 08/19/17 00:01 Laboratory results interpreted by me: 08/19/17 08/19/1708/19/18 00:01 00:01 00:01 WBC 10.8 H VBG pH 7.57 H VBG pCO2 25.9 L Sodium 136.8 L Chloride 97 L Glucose 198 H Lactic Acid 08/19/17 00:01 WBC VBG pH VBG pCO2 Sodium Chloride Glucose Lactic Acid 3.8 H Discharge - Discharge Clinical Impression: Abdominal pain Qualifiers: Abdominal location: generalized Qualified Code(s): R10.84 - Generalized abdominal pain Vomiting Qualifiers: Vomiting type: unspecified Vomiting Intractability: non-intractable Nausea presence: with nausea Qualified Code(s): R11.2 - Nausea with vomiting, unspecified Condition: Stable Disposition: ADMITTED INPATIENT Admitting Provider: Surgicalist Unit Admitted: Surgical Floor
[2017-08-19 00:15] LABS: ABSOLUTE EOSINOPHILS # (AUTO) 0.1 10^3/uL (0.0-0.6); ABSOLUTE LYMPHOCYTES (AUTO) 1.6 10^3/uL (0.5-4.7); ABSOLUTE MONOCYTES (AUTO) 1.3 10^3/uL (0.1-1.4); ABSOLUTE NEUT (AUTO) 7.8 10^3/uL (1.7-8.2); BASOPHILS % (AUTO) 0.4 % (0-2); EOSINOPHILS % (AUTO) 0.9 % (0-6); HEMOGLOBIN 14.4 g/dL (13.5-17.0); LYMPHOCYTES % (AUTO) 14.7 % (13-45); MEAN CORPUSCULAR HEMOGLOBIN 31.2 pg (27.0-33.4); MEAN CORPUSCULAR HGB CONC 34.3 g/dL (32.0-36.0); MEAN CORPUSCULAR VOLUME 91 fl (80-97); MONOCYTES % (AUTO) 11.7 % (3-13); PLATELET COUNT 255 10^3/uL (150-450); RED BLOOD COUNT 4.62 10^6/uL (4.35-5.55); RED CELL DISTRIBUTION WIDTH 13.7 % (11.5-14.0); SEGMENTED NEUTROPHILS % (AUTO) 72.3 % (42-78); TOTAL CELLS COUNTED % (AUTO) 100 %; WHITE BLOOD COUNT 10.8 10^3/uL (4.0-10.5)
[2017-08-19 00:39] LABS: VENOUS BLOOD BASE EXCESS 2.9 mmol/L; VENOUS BLOOD HCO3 23.3 mmol/L (20-32); VENOUS BLOOD PCO2 25.9 mmHg (35-63); VENOUS BLOOD PH 7.57 (7.30-7.42)
--- NOTE | 2017-08-19 00:52 | RADIOLOGY REPORT (SQ) ---
EXAM DESCRIPTION: CT ABD/PELVIS WITH IV ONLY CLINICAL HISTORY: 72 years Male, ?performation COMPARISON: None. TECHNIQUE: 100 mL Isovue-370 contrast. Coronal and sagittal reformat. This exam was performed according to our departmental dose-optimization program, which includes automated exposure control, adjustment of the mA and/or kV according to patient size and/or use of iterative reconstruction technique. FINDINGS: 2 cm epiploic appendicitis of the anterior left mid:, Image 41 of series 5. Mild streaky adjacent fat of the left colon. No significant free fluid. No evidence of perforation. Chronic 3.4 cm, third portion duodenal diverticulum increased compared with 2.7 cm on prior exam, 06/16/2016. Atherosclerosis, mild hepatic steatosis, stable likely benign low attenuation 0.9 cm hepatic cyst, small atelectasis or scar of the left lower lobe, coronary arterial calcification, cholecystectomy clips, protuberant abdomen, no significant free fluid. Subcentimeter left renal cyst. Mild right renal parenchymal volume loss and right renal scar. Chronic mild L1 and T12 anterior vertebral compression deformity, moderate L3-L4 vacuum disc desiccation and bulge-osteophyte complex with mild/moderate bilateral L3 and L4 foraminal stenoses. Pancreas, spleen, adrenals, renal system, pelvic organs, lymphatics, vasculature, and musculoskeleton appear otherwise unremarkable. IMPRESSION: 1. Epiploic appendagitis. 2. 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 The results of the examination have been personally discussed with the referring health care provider, BRADEN LOVETT, immediately following interpretation of the examination on 08/18/2017 11:42 PM RN LABOR DELIVERY.
[2017-08-19 01:10] LABS: ALANINE AMINOTRANSFERASE 42 U/L (21-72); ALBUMIN 4.3 g/dL (3.5-5.0); ALKALINE PHOSPHATASE 107 U/L (38-126); ASPARTATE AMINO TRANSFERASE 33 U/L (17-59); BILIRUBIN,DIRECT 0.3 mg/dL (0.0-0.4); BILIRUBIN,TOTAL 0.6 mg/dL (0.2-1.3); BLOOD UREA NITROGEN 18 mg/dL (7-20); CALCIUM 9.8 mg/dL (8.4-10.2); CHLORIDE 97 mmol/L (98-107); CREATINE KINASE 71 U/L (55-170); GLUCOSE 198 mg/dL (75-110); LIPASE 137.2 U/L (23-300); TOTAL PROTEIN 7.4 g/dL (6.3-8.2)
[2017-08-19 01:18] LABS: ANION GAP 18 (5-19); CARBON DIOXIDE 22 mmol/L (22-30); SODIUM 136.8 mmol/L (137-145)
[2017-08-19] MEDS ORDERED: NORMAL SALINE 1000 ML 1,000 ML IV ONE (01:28)
[2017-08-19] MEDS ORDERED: MORPHINE SULFATE 10 MG/ML INJ IV ONE (01:44)
[2017-08-19 01:57] LABS: APPEARANCE,URINE CLEAR; BILIRUBIN,URINE NEGATIVE (NEGATIVE); COLOR,URINE YELLOW; GLUCOSE, URINE NEGATIVE (NEGATIVE); KETONES,URINE NEGATIVE (NEGATIVE); LEUKOCYTE ESTERASE,URINE NEGATIVE (NEGATIVE); NITRITE,URINE NEGATIVE (NEGATIVE); PROTEIN,URINE NEGATIVE (NEGATIVE); URINE SPECIFIC GRAVITY 1.039; UROBILINOGEN,URINE NEGATIVE mg/dL (<2.0)
[2017-08-19] MEDS ORDERED: PIPERACILLIN/TAZOBACTAM 3.375 GM VIAL IV ONE ×2 (01:57→03:51)
[2017-08-19] MEDS ORDERED: GLUCAGON,HUMAN RECOMB 1 MG INJ IM PRN (02:24)
[2017-08-19] MEDS ORDERED: DEXTROSE 50%-WATER 25 GM/50 ML DISP.SYRIN IV PRN ×4 (02:24→03:24)
[2017-08-19] MEDS ORDERED: DEXTROSE 40% GEL 15 GM TUBE PO PRN ×4 (02:24→03:24)
[2017-08-19] MEDS ORDERED: NORMAL SALINE 1000 ML 1,000 ML IV PRN (02:48)
[2017-08-19] MEDS ORDERED: GLUCAGON,HUMAN RECOMB 1 MG INJ SUBCUT PRN (03:24)
--- NOTE | 2017-08-19 03:24 | PDOC H&P ---
History of Present Illness Admission Date/PCP: 08/19/17 02:57 Patient complains of: abdominal pains History of Present Illness: SATHISH ORNELAS is a 72 year old male started c/o back pains then abdominal pains 5 days ago. Patient is on pain management by Dr Rhodes on Oxycodone 15 mgs QID for back pains. He bumped his chest 4 days ago but no c/o due to this. His pains are almost the same pains when he had Pancreatitis 5 years ago. 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 scan of abdomen in ED showed appendagitis on large bowel wall on left side. Also has a 3 cm duodenal diverticulum. Past Medical History Cardiac Medical History: Reports: Hyperlipidema - meds x 10 years, Hypertension - meds x 15 years, Pulmonary Embolism - 2013, post-op Denies: Atrial Fibrillation, Congestive Heart Failure, Coronary Artery Disease, Myocardial Infarction, Peripheral Vascular Disease, Heart Murmur Pulmonary Medical History: Denies: Asthma, Bronchitis, Chronic Obstructive Pulmonary Disease (COPD), Pneumonia, Respiratory Failure, Sleep Apnea, Tuberculosis Neurological Medical History: Endocrine Medical History: Reports: Diabetes Mellitus Type 1, Diabetes Mellitus Type 2 Denies: Hyperthyroidism, Hypothyroidism Malignancy Medical History: Denies: Leukemia, Lung Cancer GI Medical History: Denies: Crohn's Disease, Gastroesophageal Reflux Disease, Hiatal Hernia Musculoskeltal Medical History: Reports: Arthritis Denies: Fibromyalgia Skin Medical History: Reports: Psoriasis Psychiatric Medical History: Reports: Depression - Hx of, denies issues since 2012, Post Traumatic Stress Disorder Denies: Bipolar Disorder Hematology: Reports: Anemia - transfusion 2012, post-op Denies: Hemophilia, Sickle Cell Disease Infectious Medical History: Denies: HIV Past Surgical History Past Surgical History: Reports: Cholecystectomy - lap , Tonsillectomy Denies: Appendectomy, Colostomy, Coronary Artery Bypass Graft, Gastric Bypass Surgery, Herniorrhaphy, Pacemaker Social History Lives with: Family Smoking Status: Former Smoker Frequency of Alcohol Use: None Hx Recreational Drug Use: No - per Dr Shook's note, Hx of prior use of: Drugs: None Hx Prescription Drug Abuse: No - Advance Directive Resuscitation Status: Full Code Family History Family History: DM, Malignancy - Lungs CTA, Other - CHF Parental Family History Reviewed: Yes - both in their 80's Children Family History Reviewed: No Sibling(s) Family History Reviewed.: No Medication/Allergy Home Medications: Aspirin [Aspirin 81 mg Chewable Tablet] 81 mg PO DAILY 11/08/16 Cholecalciferol (Vitamin D3) [Vitamin D3 1000 Unit Tablet] 1,000 unit PO DAILY 11/08/16 Glipizide [Glipizide ER] 5 mg PO DAILY 11/08/16 Insulin Glargine,Hum.rec.anlog [Lantus Solostar] 37 unit SQ QHS 11/08/16 Lisinopril [Prinivil 10 mg Tablet] 10 mg PO DAILY 11/08/16 Lisinopril/Hydrochlorothiazide [Lisinopril-Hctz 20-25 mg Tab] 1 tab PO DAILY Multivitamin [Tab-A-Kirti] 1 tab PO DAILY 11/08/16 Oxycodone HCl [Oxy-Ir 5 mg Tablet] 15 mg PO QID 11/08/16 Tizanidine HCl [Zanaflex 4 Mg Tablet] 4 mg PO BIDP PRN 11/08/16 Prednisone [Deltasone 20 mg Tablet] 3 tab PO DAILY 5 Days tablet 03/20/17 Hydrocortisone [Cortisone] 99 gm TP BIDP PRN #1 lotion 04/09/17 Prednisone [Deltasone 20 mg Tablet] 2 tab PO DAILY 7 Days tablet 04/09/17 Allergies/Adverse Reactions: Sulfa (Sulfonamide Antibiotics) Allergy (Unknown, Verified 05/03/15 15:41) ciprofloxacin [From Cipro] Allergy (Verified 05/03/15 15:41) Review of Systems Constitutional: PRESENT: night sweats Eyes: PRESENT: other - no visual/hearing problems Nose, Mouth, and Throat: PRESENT: other - no sore throat Cardiovascular: PRESENT: other - no chest pains Respiratory: PRESENT: other - no cough Gastrointestinal: PRESENT: abdominal pain, nausea, other - back pains Genitourinary: PRESENT: other - no dysuria Musculoskeletal: PRESENT: back pain Integumentary: PRESENT: other - hematomas on anterior chest due to trauma Neurological: PRESENT: other - no seizures Psychiatric: PRESENT: anxiety Endocrine: PRESENT: other - no polyuria Hematologic/Lymphatic: PRESENT: other - no easy bruisability Physical Exam Vital Signs: Temp Pulse Resp BP Pulse Ox 98.1 F 130 H 29 H 178/134 H 99 08/18/17 23:30 08/18/17 23:30 08/19/17 00:01 08/18/17 23:45 08/19/17 00:01 General appearance: PRESENT: mild distress, obese Head exam: PRESENT: atraumatic Eye exam: PRESENT: conjunctiva pink Mouth exam: PRESENT: moist, tongue midline Neck exam: PRESENT: full ROM Respiratory exam: PRESENT: chest wall tenderness - mild tenderness along hematoma sites, clear to auscultation michela Cardiovascular exam: PRESENT: tachycardia Pulses: PRESENT: normal radial pulses Vascular exam: PRESENT: normal capillary refill GI/Abdominal exam: PRESENT: distended, soft, tenderness - diffuse tenderness worse on lower quadrants Rectal exam: PRESENT: deferred Extremities exam: PRESENT: full ROM Musculoskeletal exam: PRESENT: ambulatory Neurological exam: PRESENT: alert, oriented to person, oriented to place, oriented to time, oriented to situation Psychiatric exam: PRESENT: anxious Skin exam: PRESENT: normal color, warm Results Impressions: Abdomen/Pelvis CT 08/18/17 23:58 IMPRESSION: 1. Epiploic appendagitis. 2. 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 Assessment & Plan - Diagnosis (2) Diabetes mellitus Qualifiers: Diabetes mellitus type: type 1 Diabetes mellitus complication status: with unspecified complications Qualified Code(s): E10.8 - Type 1 diabetes mellitus with unspecified complications Is this a current diagnosis for this admission?: Yes (3) History of schizophrenia Is this a current diagnosis for this admission?: Yes (4) Low back pain Qualifiers: Chronicity: chronic Back pain laterality: midline Sciatica presence: unspecified whether sciatica present Qualified Code(s): M54.5 - Low back pain Is this a current diagnosis for this admission?: Yes - Time Time Spent: 30 to 50 Minutes - Inpatient Certification Medical Necessity: Significant Comorbidiites Make Outpatient Treatment Too Risky , Need For IV Fluids, Need for Pain Control, Need for IV Antibiotics, Risk of Complication if Not Cared For in Hospital - Plan Summary Plan Summary: IV antibiotics Pain mx Hydrate Keep NPO Serial PE and abdominal evaluation Monitor CBC with differential CMP Medical consult for comorbidities(DM, chronic pain mx)
[2017-08-19] MEDS: MORPHINE SULFATE 10 MG/ML INJ IV PRN ×10 (04:17→22:17)
[2017-08-19] MEDS: NORMAL SALINE 1000 ML 1,000 ML IV PRN ×3 (04:17→23:46)
[2017-08-19 04:56] LABS: ABSOLUTE LYMPHOCYTES (AUTO) 1.2 10^3/uL (0.5-4.7); ABSOLUTE NEUT (AUTO) 5.7 10^3/uL (1.7-8.2); BASOPHILS % (AUTO) 0.4 % (0-2); EOSINOPHILS % (AUTO) 0.3 % (0-6); HEMATOCRIT 36.6 % (37.9-51.0); HEMOGLOBIN 12.7 g/dL (13.5-17.0); LYMPHOCYTES % (AUTO) 14.8 % (13-45); MEAN CORPUSCULAR HEMOGLOBIN 31.3 pg (27.0-33.4); MEAN CORPUSCULAR HGB CONC 34.6 g/dL (32.0-36.0); MEAN CORPUSCULAR VOLUME 90 fl (80-97); MONOCYTES % (AUTO) 12.4 % (3-13); PLATELET COUNT 194 10^3/uL (150-450); RED BLOOD COUNT 4.05 10^6/uL (4.35-5.55); RED CELL DISTRIBUTION WIDTH 13.7 % (11.5-14.0); SEGMENTED NEUTROPHILS % (AUTO) 72.1 % (42-78); TOTAL CELLS COUNTED % (AUTO) 100 %; WHITE BLOOD COUNT 7.9 10^3/uL (4.0-10.5)
[2017-08-19 05:13] LABS: ALANINE AMINOTRANSFERASE 41 U/L (21-72); ALBUMIN 3.6 g/dL (3.5-5.0); ALKALINE PHOSPHATASE 81 U/L (38-126); ANION GAP 13 (5-19); ASPARTATE AMINO TRANSFERASE 27 U/L (17-59); BILIRUBIN,DIRECT 0.3 mg/dL (0.0-0.4); BILIRUBIN,TOTAL 0.4 mg/dL (0.2-1.3); BLOOD UREA NITROGEN 15 mg/dL (7-20); CALCIUM 8.4 mg/dL (8.4-10.2); CARBON DIOXIDE 23 mmol/L (22-30); CHLORIDE 103 mmol/L (98-107); GLUCOSE 172 mg/dL (75-110); SODIUM 138.9 mmol/L (137-145); TOTAL PROTEIN 6.1 g/dL (6.3-8.2)
[2017-08-19] MEDS: KETOROLAC TROMETHAMINE INJ/PF 30 MG/1 ML SDV IV PRN (05:51)
[2017-08-19] MEDS: HYDRALAZINE HCL INJ/PF 20 MG/1 ML SDV IV PRN (05:52)
[2017-08-19] MEDS ORDERED: PIPERACILLIN/TAZOBACTAM 3.375 GM VIAL IV SCH (06:00)
[2017-08-19] MEDS ORDERED: ENALAPRILAT DIHYDRATE INJ/PF 1.25 MG/1 ML SDV IV ONE (07:00)
--- NOTE | 2017-08-19 07:24 | PDOC H&P ---
History of Present Illness Admission Date/PCP: 08/19/17 02:57 Patient complains of: Abdominal distention nausea and vomiting History of Present Illness: SATHISH ORNELAS is a 72 year old male with a past medical history of hypertension, diabetes and remote necrotizing pancreatitis requiring debridement. Patient presents with 3 days of abdominal pain and distention with several episodes of diarrhea initially but in 24 hours of nausea and vomiting gastric content. Patient denies previous episode he denies suspect meals, new medications or constipation. In the emergency room he was found to have metabolic acidosis and a presentation concerning for small bowel obstruction and CT with duodenal diverticulum. He is admitted by surgery with medicine consultation. Patient states his blood sugar and blood pressure are usually well controlled. Past Medical History Cardiac Medical History: Reports: Hyperlipidema - meds x 10 years, Hypertension - meds x 15 years, Pulmonary Embolism - 2013, post-op Denies: Atrial Fibrillation, Congestive Heart Failure, Coronary Artery Disease, Myocardial Infarction, Peripheral Vascular Disease, Heart Murmur Pulmonary Medical History: Denies: Asthma, Bronchitis, Chronic Obstructive Pulmonary Disease (COPD), Pneumonia, Respiratory Failure, Sleep Apnea, Tuberculosis Neurological Medical History: Endocrine Medical History: Reports: Diabetes Mellitus Type 1, Diabetes Mellitus Type 2 Denies: Hyperthyroidism, Hypothyroidism Malignancy Medical History: Denies: Leukemia, Lung Cancer GI Medical History: Denies: Crohn's Disease, Gastroesophageal Reflux Disease, Hiatal Hernia Musculoskeltal Medical History: Reports: Arthritis Denies: Fibromyalgia Skin Medical History: Reports: Psoriasis Psychiatric Medical History: Reports: Depression - Hx of, denies issues since 2012, Post Traumatic Stress Disorder Denies: Bipolar Disorder Hematology: Reports: Anemia - transfusion 2012, post-op Denies: Hemophilia, Sickle Cell Disease Infectious Medical History: Denies: HIV Past Surgical History Past Surgical History: Reports: Cholecystectomy - lap , Tonsillectomy Denies: Appendectomy, Colostomy, Coronary Artery Bypass Graft, Gastric Bypass Surgery, Herniorrhaphy, Pacemaker Social History Lives with: Family Smoking Status: Former Smoker Cigarettes Packs Per Day: 1 Number of Years Smokin Last Time Smoked: 08/12/1992 Frequency of Alcohol Use: None Hx Recreational Drug Use: No Drugs: None Hx Prescription Drug Abuse: No - Advance Directive Resuscitation Status: Full Code Family History Family History: DM, Malignancy - Lungs CTA, Other - CHF Parental Family History Reviewed: Yes Children Family History Reviewed: Yes Sibling(s) Family History Reviewed.: Yes Medication/Allergy Home Medications: Aspirin [Aspirin 81 mg Chewable Tablet] 81 mg PO DAILY 11/08/16 Cholecalciferol (Vitamin D3) [Vitamin D3 1000 Unit Tablet] 1,000 unit PO DAILY 11/08/16 Glipizide [Glipizide ER] 5 mg PO DAILY 11/08/16 Insulin Glargine,Hum.rec.anlog [Lantus Solostar] 37 unit SQ QHS 11/08/16 Lisinopril [Prinivil 10 mg Tablet] 10 mg PO DAILY 11/08/16 Lisinopril/Hydrochlorothiazide [Lisinopril-Hctz 20-25 mg Tab] 1 tab PO DAILY Multivitamin [Tab-A-Kirti] 1 tab PO DAILY 11/08/16 Oxycodone HCl [Oxy-Ir 5 mg Tablet] 15 mg PO QID 11/08/16 Tizanidine HCl [Zanaflex 4 Mg Tablet] 4 mg PO BIDP PRN 11/08/16 Prednisone [Deltasone 20 mg Tablet] 3 tab PO DAILY 5 Days tablet 03/20/17 Hydrocortisone [Cortisone] 99 gm TP BIDP PRN #1 lotion 04/09/17 Prednisone [Deltasone 20 mg Tablet] 2 tab PO DAILY 7 Days tablet 04/09/17 Allergies/Adverse Reactions: Sulfa (Sulfonamide Antibiotics) Allergy (Unknown, Verified 05/03/15 15:41) ciprofloxacin [From Cipro] Allergy (Verified 05/03/15 15:41) Review of Systems Constitutional: PRESENT: as per HPI, fatigue. ABSENT: fever(s), headache(s), night sweats, weakness Eyes: ABSENT: visual disturbances Ears: ABSENT: hearing changes Cardiovascular: ABSENT: chest pain, dyspnea on exertion, edema, orthropnea, palpitations Respiratory: ABSENT: cough, hemoptysis Gastrointestinal: PRESENT: as per HPI, abdominal pain, bloating, diarrhea, nausea, vomiting. ABSENT: coffee ground emesis, constipation, dysphagia, heartburn, hematemesis, hematochezia, melena Genitourinary: ABSENT: dysuria, hematuria Musculoskeletal: ABSENT: joint swelling Integumentary: ABSENT: rash, wounds Neurological: ABSENT: abnormal gait, abnormal speech, confusion, dizziness, focal weakness, syncope Psychiatric: ABSENT: anxiety, depression, homidical ideation, suicidal ideation Endocrine: ABSENT: cold intolerance, heat intolerance, polydipsia, polyuria Hematologic/Lymphatic: ABSENT: easy bleeding, easy bruising Physical Exam Vital Signs: Temp Pulse Resp BP Pulse Ox 97.8 F 100 16 199/99 H 98 08/19/17 05:15 08/19/17 05:34 08/19/17 05:15 08/19/17 05:15 08/19/17 05:15 Intake & Output 08/17/17 08/18/17 08/19/17 11:59 11:59 11:59 Intake Total 100 Output Total 0 Balance 100 Weight 108 kg General appearance: PRESENT: cooperative, mild distress, morbidly obese Head exam: PRESENT: atraumatic, normocephalic Eye exam: PRESENT: conjunctiva pink, EOMI, PERRLA. ABSENT: scleral icterus Ear exam: PRESENT: normal external ear exam Mouth exam: PRESENT: moist, tongue midline Neck exam: ABSENT: carotid bruit, JVD, lymphadenopathy, thyromegaly Respiratory exam: PRESENT: clear to auscultation michela. ABSENT: rales, rhonchi, wheezes Cardiovascular exam: PRESENT: RRR. ABSENT: diastolic murmur, rubs, systolic murmur Pulses: PRESENT: normal dorsalis pedis pul Vascular exam: PRESENT: normal capillary refill GI/Abdominal exam: PRESENT: distended, firm, hyperactive bowel sounds, tenderness. ABSENT: guarding Rectal exam: PRESENT: deferred Extremities exam: PRESENT: full ROM. ABSENT: calf tenderness, clubbing, pedal edema Neurological exam: PRESENT: alert, awake, oriented to person, oriented to place , oriented to time, oriented to situation, CN II-XII grossly intact. ABSENT: motor sensory deficit Psychiatric exam: PRESENT: appropriate affect, normal mood. ABSENT: homicidal ideation, suicidal ideation Skin exam: PRESENT: dry, intact, warm. ABSENT: cyanosis, rash Results Laboratory Results: 08/19/17 04:33 08/19/17 04:33 08/19/17 08/19/17 04:33 04:33 WBC 7.9 RBC 4.05 L Hgb 12.7 L Hct 36.6 L MCV 90 MCH 31.3 MCHC 34.6 RDW 13.7 Plt Count 194 Seg Neutrophils % 72.1 Lymphocytes % 14.8 Monocytes % 12.4 Eosinophils % 0.3 Basophils % 0.4 Absolute Neutrophils 5.7 Absolute Lymphocytes 1.2 Absolute Monocytes 1.0 Absolute Eosinophils 0.0 Absolute Basophils 0.0 Sodium 138.9 Potassium 4.0 Chloride 103 Carbon Dioxide 23 Anion Gap 13 BUN 15 Creatinine 0.86 Est GFR ( Amer) > 60 Est GFR (Non-Af Amer) > 60 Glucose 172 H Calcium 8.4 Total Bilirubin 0.4 AST 27 ALT 41 Alkaline Phosphatase 81 Total Protein 6.1 L Albumin 3.6 Lipase 100.0 Impressions: Abdomen/Pelvis CT 08/18/17 23:58 IMPRESSION: 1. Epiploic appendagitis. 2. 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 Assessment & Plan - Diagnosis (1) Hypertension Is this a current diagnosis for this admission?: Yes Plan: IV hydralazine and Vasotec (2) Abdominal pain Qualifiers: Abdominal location: generalized Qualified Code(s): R10.84 - Generalized abdominal pain Is this a current diagnosis for this admission?: Yes Plan: Secondary to duodenal diverticulum. Defer to surgery (3) Diabetes mellitus Qualifiers: Diabetes mellitus type: type 1 Diabetes mellitus complication status: with unspecified complications Qualified Code(s): E10.8 - Type 1 diabetes mellitus with unspecified complications Is this a current diagnosis for this admission?: Yes Plan: N.p.o. hold long-acting insulin, sliding scale every 6 hours - Time Time Spent: 30 to 50 Minutes - Inpatient Certification Medical Necessity: Need Close Monitoring Due to Risk of Patient Decompensation
--- NOTE | 2017-08-19 07:33 | EKG REPORT ---
SEVERITY:- ABNORMAL ECG - SINUS TACHYCARDIA PROBABLE INFERIOR INFARCT, AGE INDETERMINATE : Confirmed by: Glenn Vinson MD 19-Aug-2017 07:33:12
--- NOTE | 2017-08-19 08:43 | RADIOLOGY REPORT (SQ) ---
EXAM DESCRIPTION: CHEST SINGLE VIEW COMPLETED DATE/TIME: 08/19/2017 12:29 am REASON FOR STUDY: ? free air COMPARISON: Abdominal CT scan dated 08/19/2017 and chest x-ray dated October 2016 EXAM PARAMETERS: NUMBER OF VIEWS: One view. TECHNIQUE: Single frontal radiographic view of the chest acquired. RADIATION DOSE: NA LIMITATIONS: None. FINDINGS: LUNGS AND PLEURA: No opacities, masses or pneumothorax. No pleural effusion. MEDIASTINUM AND HILAR STRUCTURES: No masses. Contour normal. HEART AND VASCULAR STRUCTURES: Heart normal in size. Normal vasculature. BONES: No acute findings. HARDWARE: None in the chest. OTHER: No free air is identified. IMPRESSION: NO ACUTE RADIOGRAPHIC FINDING IN THE CHEST. TECHNICAL DOCUMENTATION: JOB ID: [id number] [employer]- All Rights Reserved
[2017-08-19] MEDS: PIPERACILLIN SODIUM/TAZOBACTAM 3.375 GM in NORMAL SALINE 100 ML IV SCH ×3 (10:20→22:17)
--- NOTE | 2017-08-19 11:45 | Physician Advisory Note ---
Physician Advisor ProgressNote .: [facility], I have reviewed the medical record for this patient. Physician Advisor Statement: Please consider documenting, if you agree: 1. "Acute abdominal pain, suspect due to " (& if this is the main reason for admission, please document this as Dx #1 in each note) 2. Medical necessity: Please document in each note the clinical reasons pt is still not sufficiently safe for d/c to home. Examples: "Patient continues to show hemodynamic instability", "requiring frequent PRN doses of IV opioid for adequate pain control", "recurrent bradypnea ", "persistent tachycardia despite 4L of IVF boluses & repeated pain tx", "I AM CONCERNED about ", ... 3. "opioid dependency due to " Status discussion: Medicare pt, age 72, with underlying HTN, HLD, DM-2 requiring insulin, obesity, necrotic pancreatitis with excision of pseudocyst in past, post-op PE 2012, lap carlos, depression, PTSD, chronic oxycodone use - presented on 08/18/17 PM with acute worsening severe abd pain associated with N/V/ D, severe tachycardia, tachypnea, severe distress, diffusely tender abd w/ guarding, "critical appearance" per ED physician. Lactate 3.9. CT findings surprised ED physician given their lack of dangerous acute findings. Pt has continued quite tachycardic consistently, despite 4L of IVF boluses & ongoing IVF at high rate. He has had recurrent bradypnea as low as 7 breaths/minute. He has required high dose IV morphine 4 times already just in the last 12 hours (typically, he only takes low dose oxycodone 4x/24 hours). Surgeon has indicated need for IV antibiotics, serial exams, pain management, ongoing close monitoring. Patient is highly unlikely to have any chance of safe d/c before tomorrow. Appropriate for Inpatient status. Thanks! CK
--- NOTE | 2017-08-19 15:20 | PDOC PROGRESS REPORT ---
Subjective Progress Note for:: 08/19/17 Reason For Visit: COLONIC APPENDAGITIS,DM When I saw the patient today still complaining of diffuse abdominal pain. This is been going on for 10 days. Patient is not a precise historian. His symptoms are similar to those he experienced 5+ years ago when he developed pancreatitis. Apparently was treated at [facility] with sequential exploratory laparotomies, pancreatic drainage procedures. No records are available he drank alcohol until 25 years ago then stop. He is status post laparoscopic cholecystectomy in [place] prior to the pancreas surgery resident has a history of colon polyps for 10 years ago with no surveillance. He denies family history of pancreatitis or colorectal cancer. Of note the CT scan of the abdomen and pelvis performed on admission no oral contrast. No significant fluid collections abscess or free air. Study limited due to absence of contrast. There is evidence of atrophy of the distal pancreas ; no clips in the region of the pancreas; clips to althea hepatis consistent with previous cholecystectomy Physical Exam Vital Signs: Temp Pulse Resp BP Pulse Ox 97.4 F 88 12 149/86 H 97 08/19/17 13:07 08/19/17 14:00 08/19/17 13:07 08/19/17 13:07 08/19/17 13:07 Intake & Output 08/18/17 08/19/17 08/20/17 06:59 06:59 06:59 Intake Total 100 Output Total 0 Balance 100 Weight 108 kg General appearance: PRESENT: no acute distress GI/Abdominal exam: PRESENT: other - Distended , hypoactive bowel sounds; soft no peritoneal signs generalized tenderness Results Laboratory Results: 08/19/17 04:33 08/19/17 04:33 08/19/17 08/19/17 04:33 04:33 WBC 7.9 RBC 4.05 L Hgb 12.7 L Hct 36.6 L MCV 90 MCH 31.3 MCHC 34.6 RDW 13.7 Plt Count 194 Seg Neutrophils % 72.1 Lymphocytes % 14.8 Monocytes % 12.4 Eosinophils % 0.3 Basophils % 0.4 Absolute Neutrophils 5.7 Absolute Lymphocytes 1.2 Absolute Monocytes 1.0 Absolute Eosinophils 0.0 Absolute Basophils 0.0 Sodium 138.9 Potassium 4.0 Chloride 103 Carbon Dioxide 23 Anion Gap 13 BUN 15 Creatinine 0.86 Est GFR ( Amer) > 60 Est GFR (Non-Af Amer) > 60 Glucose 172 H Calcium 8.4 Total Bilirubin 0.4 AST 27 ALT 41 Alkaline Phosphatase 81 Total Protein 6.1 L Albumin 3.6 Lipase 100.0 Impressions: Chest X-Ray 08/18/17 23:49 IMPRESSION: NO ACUTE RADIOGRAPHIC FINDING IN THE CHEST. Abdomen/Pelvis CT 08/18/17 23:58 IMPRESSION: 1. Epiploic appendagitis. 2. 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 The results of the examination have been personally discussed with the referring health care provider, BRADEN LOVETT, immediately following interpretation of the examination on 08/18/2017 11:42 PM MEDICAL CLINIC MANAGER. Assessment & Plan - Diagnosis (1) Abdominal pain Qualifiers: Abdominal location: generalized Qualified Code(s): R10.84 - Generalized abdominal pain Is this a current diagnosis for this admission?: Yes Plan: The etiology of the patient's abdominal pain remains elusive; there is no clinical radiographic or hematologic evidence of pancreatitis; I am not sure I even understand what colonic appendigitis is; Recommendations: 1. No evidence for surgical intervention. 2. We will discuss transferring patient to medicine service.
[2017-08-19] MEDS: ENALAPRILAT DIHYDRATE INJ/PF 1.25 MG/1 ML SDV IV SCH (22:17)
[2017-08-20] MEDS: MORPHINE SULFATE 10 MG/ML INJ IV PRN ×9 (00:55→22:32)
[2017-08-20] MEDS: PIPERACILLIN SODIUM/TAZOBACTAM 3.375 GM in NORMAL SALINE 100 ML IV SCH ×4 (02:15→20:49)
[2017-08-20] MEDS: HYDRALAZINE HCL INJ/PF 20 MG/1 ML SDV IV PRN ×4 (04:56→23:35)
[2017-08-20] MEDS: KETOROLAC TROMETHAMINE INJ/PF 30 MG/1 ML SDV IV PRN (05:02)
[2017-08-20 07:06] LABS: ABSOLUTE EOSINOPHILS # (AUTO) 0.2 10^3/uL (0.0-0.6); ABSOLUTE LYMPHOCYTES (AUTO) 0.9 10^3/uL (0.5-4.7); ABSOLUTE MONOCYTES (AUTO) 0.7 10^3/uL (0.1-1.4); BASOPHILS % (AUTO) 0.6 % (0-2); EOSINOPHILS % (AUTO) 3.3 % (0-6); HEMATOCRIT 36.8 % (37.9-51.0); HEMOGLOBIN 12.5 g/dL (13.5-17.0); LYMPHOCYTES % (AUTO) 15.5 % (13-45); MEAN CORPUSCULAR HEMOGLOBIN 31.1 pg (27.0-33.4); MEAN CORPUSCULAR VOLUME 92 fl (80-97); MONOCYTES % (AUTO) 12.1 % (3-13); PLATELET COUNT 170 10^3/uL (150-450); RED BLOOD COUNT 4.02 10^6/uL (4.35-5.55); RED CELL DISTRIBUTION WIDTH 13.9 % (11.5-14.0); SEGMENTED NEUTROPHILS % (AUTO) 68.5 % (42-78); TOTAL CELLS COUNTED % (AUTO) 100 %; WHITE BLOOD COUNT 5.9 10^3/uL (4.0-10.5)
[2017-08-20 07:33] LABS: ALANINE AMINOTRANSFERASE 39 U/L (21-72); ALBUMIN 3.3 g/dL (3.5-5.0); ALKALINE PHOSPHATASE 78 U/L (38-126); ANION GAP 10 (5-19); ASPARTATE AMINO TRANSFERASE 34 U/L (17-59); BILIRUBIN,DIRECT 0.2 mg/dL (0.0-0.4); BILIRUBIN,TOTAL 0.4 mg/dL (0.2-1.3); BLOOD UREA NITROGEN 13 mg/dL (7-20); CALCIUM 7.9 mg/dL (8.4-10.2); CARBON DIOXIDE 24 mmol/L (22-30); CHLORIDE 106 mmol/L (98-107); GLUCOSE 164 mg/dL (75-110); LIPASE 97.1 U/L (23-300); POTASSIUM 3.6 mmol/L (3.6-5.0); SODIUM 140.2 mmol/L (137-145); TOTAL PROTEIN 5.7 g/dL (6.3-8.2)
[2017-08-20] MEDS ORDERED: CALCIUM CARBONATE 500 MG TAB.CHEW PO ONE (09:34)
[2017-08-20] MEDS ORDERED: PHARMACY COMMUNICATION ORDER MC NR (09:45)
--- NOTE | 2017-08-20 09:53 | PDOC PROGRESS REPORT ---
Subjective Progress Note for:: 08/20/17 Subjective:: Received call from nurse this morning stating that patient was complaining of severe abdominal pain and was requested to speak to Dr. gambino. Been received call from nurse dials supervisor as well requesting for physician to be at bedside. Nursing dials supervisor then stated that surgery was at bedside. Nursing reported that patient had been complaining of abdominal pain in that surgery was aware of patient's complaint given the fact that surgery is primary. Medicine was consulted for medical management other medical issues. When I arrived at patient's bedside patient stated that he was having abdominal pain. Patient stated that he initially had had diarrhea prior to admission but has not had any further episodes of diarrhea. Patient reports that he has not had a bowel movement for several days however would not quantify how many days. Patient's pain medication is being managed by surgery. Patient was ordered for an abdominal x-ray. Reason For Visit: COLONIC APPENDAGITIS,DM Physical Exam Vital Signs: Temp Pulse Resp BP Pulse Ox 98.0 F 112 H 18 191/97 H 91 L 08/20/17 04:05 08/20/17 07:00 08/20/17 04:05 08/20/17 04:05 08/20/17 04:05 Intake & Output 08/19/17 08/20/17 08/21/17 06:59 06:59 06:59 Intake Total 100 3300 Output Total 0 600 Balance 100 2700 Weight 108 kg 108 kg General appearance: PRESENT: mild distress, morbidly obese, well-developed, well -nourished Head exam: PRESENT: atraumatic, normocephalic Eye exam: PRESENT: conjunctiva pink, EOMI. ABSENT: scleral icterus Ear exam: PRESENT: normal external ear exam Mouth exam: PRESENT: moist, tongue midline Neck exam: ABSENT: carotid bruit, JVD, lymphadenopathy, thyromegaly Respiratory exam: PRESENT: clear to auscultation michela. ABSENT: rales, rhonchi, wheezes Cardiovascular exam: PRESENT: RRR. ABSENT: diastolic murmur, rubs, systolic murmur Pulses: PRESENT: normal dorsalis pedis pul Vascular exam: PRESENT: normal capillary refill GI/Abdominal exam: PRESENT: other - Distended decreased bowel sounds no rebound or guarding appreciated Rectal exam: PRESENT: deferred Extremities exam: PRESENT: full ROM. ABSENT: calf tenderness, clubbing, pedal edema Neurological exam: PRESENT: alert, awake, oriented to person, oriented to place , oriented to time, oriented to situation, CN II-XII grossly intact. ABSENT: motor sensory deficit Psychiatric exam: PRESENT: appropriate affect, normal mood. ABSENT: homicidal ideation, suicidal ideation Skin exam: PRESENT: dry, intact, warm. ABSENT: cyanosis, rash Results Laboratory Results: 08/20/17 06:47 08/20/17 06:47 08/20/17 08/20/17 06:47 06:47 WBC 5.9 RBC 4.02 L Hgb 12.5 L Hct 36.8 L MCV 92 MCH 31.1 MCHC 34.0 RDW 13.9 Plt Count 170 Seg Neutrophils % 68.5 Lymphocytes % 15.5 Monocytes % 12.1 Eosinophils % 3.3 Basophils % 0.6 Absolute Neutrophils 4.0 Absolute Lymphocytes 0.9 Absolute Monocytes 0.7 Absolute Eosinophils 0.2 Absolute Basophils 0.0 Sodium 140.2 Potassium 3.6 Chloride 106 Carbon Dioxide 24 Anion Gap 10 BUN 13 Creatinine 0.94 Est GFR ( Amer) > 60 Est GFR (Non-Af Amer) > 60 Glucose 164 H Calcium 7.9 L Total Bilirubin 0.4 AST 34 ALT 39 Alkaline Phosphatase 78 Total Protein 5.7 L Albumin 3.3 L Lipase 97.1 Impressions: Chest X-Ray 08/18/17 23:49 IMPRESSION: NO ACUTE RADIOGRAPHIC FINDING IN THE CHEST. Abdomen/Pelvis CT 08/18/17 23:58 IMPRESSION: 1. Epiploic appendagitis. 2. 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 The results of the examination have been personally discussed with the referring health care provider, BRADEN LOVETT, immediately following interpretation of the examination on 08/18/2017 11:42 PM CONFIGURATION RELEASE MANAGER. Assessment & Plan - Diagnosis (1) Ileus Is this a current diagnosis for this admission?: Yes Plan: Suspect ileus: Will place NG tube, will place patient on Reglan, will give patient soapsuds enema. X-ray of abdomen has been ordered by surgery. (2) Abdominal pain Qualifiers: Abdominal location: generalized Qualified Code(s): R10.84 - Generalized abdominal pain Is this a current diagnosis for this admission?: Yes Plan: Suspect secondary to ileus and Epiploic Appendagitis: We will place NG tube, give Reglan, and soapsuds enema. X-ray has been ordered by surgery. Patient's pain medication is being managed by surgery the primary. (3) colonic appendagitis Is this a current diagnosis for this admission?: Yes Plan: Epiploic Appendagitis: Supportive care. (4) Hypertension Is this a current diagnosis for this admission?: Yes Plan: We will change hydralazine to every 2hours 20 mg IV as needed. Will continue to monitor. (5) Diabetes mellitus Qualifiers: Diabetes mellitus type: type 1 Diabetes mellitus complication status: with unspecified complications Qualified Code(s): E10.8 - Type 1 diabetes mellitus with unspecified complications Is this a current diagnosis for this admission?: Yes Plan: Will continue SSI (6) Hyperlipidemia Qualifiers: Hyperlipidemia type: unspecified Qualified Code(s): E78.5 - Hyperlipidemia , unspecified (7) Opioid dependence Is this a current diagnosis for this admission?: Yes Plan: Patient's pain medication being managed by surgery. Feel that patient's abdominal issues could be related to patient's opioid dependency. (8) DVT prophylaxis Is this a current diagnosis for this admission?: Yes Plan: SCDs - Time Time Spent with patient: 25-34 minutes
[2017-08-20] MEDS: ENALAPRILAT DIHYDRATE INJ/PF 1.25 MG/1 ML SDV IV SCH ×2 (09:57→22:28)
[2017-08-20] MEDS ORDERED: MORPHINE SULFATE 10 MG/ML INJ IV ONE (10:00)
--- NOTE | 2017-08-20 10:24 | RADIOLOGY REPORT (SQ) ---
EXAM DESCRIPTION: ABDOMEN 2 VIEWS COMPLETED DATE/TIME: 08/20/2017 9:36 am REASON FOR STUDY: ABD. PAIN COMPARISON: Chest films 08/19/2017 CT abdomen pelvis 08/19/2017 NUMBER OF VIEWS: Two views. TECHNIQUE: Supine and upright radiographic images of the abdomen acquired. LIMITATIONS: None. FINDINGS: FREE AIR: None. No abnormal gas collections. LUNG BASES: Clear. BOWEL GAS PATTERN: Nonspecific nonobstructive bowel gas pattern. Few air-filled small bowel loops in the mid epigastrium. Air and stomach fundus transverse colon and rectosigmoid. CALCIFICATIONS: No suspicious calcifications. SOFT TISSUES: No gross mass or suggestion of organomegaly. HARDWARE: None in the abdomen. BONES: No acute fracture. No worrisome bone lesions. OTHER: No other significant finding. IMPRESSION: Nonspecific nonobstructive bowel gas pattern TECHNICAL DOCUMENTATION: JOB ID: [id number] [employer]- All Rights Reserved
[2017-08-20] MEDS: CALCIUM CARBONATE 500 MG TAB.CHEW NG SCH ×3 (11:47→22:28)
--- NOTE | 2017-08-20 12:41 | RADIOLOGY REPORT (SQ) ---
EXAM DESCRIPTION: KUB/ABDOMEN (SINGLE VIEW) COMPLETED DATE/TIME: 08/20/2017 11:12 am REASON FOR STUDY: Check Placement of NG Tube COMPARISON: Nasogastric tube placement films 08/20/2017, 0922 hours NUMBER OF VIEWS: One view. TECHNIQUE: Supine radiographic image of the abdomen acquired. LIMITATIONS: None. FINDINGS: There is a nasogastric tube with the tip in the stomach fundus, side port at the GE juncti on Nonspecific bowel gas pattern. Clips right upper quadrant post cholecystectomy. Lung bases are trudy sly clear. IMPRESSION: Nasogastric tube tip in the stomach, side port at the GE junction region TECHNICAL DOCUMENTATION: JOB ID: [id number] [employer]- All Rights Reserved
[2017-08-20] MEDS: METOCLOPRAMIDE HCL INJ/PF 10 MG/2 ML SDV IV SCH ×2 (13:30→22:28)
[2017-08-20] MEDS: NORMAL SALINE 1000 ML 1,000 ML IV PRN ×2 (14:56→22:33)
--- NOTE | 2017-08-20 16:53 | PDOC PROGRESS REPORT ---
Subjective Progress Note for:: 08/20/17 Subjective:: abdominal pains worse this am. KUB shows no obstruction. NGT inserted and so far only drained 200 ccs greenish fluid. No pains this pm. Reason For Visit: COLONIC APPENDAGITIS,DM Physical Exam Vital Signs: Temp Pulse Resp BP Pulse Ox 97.7 F 111 H 16 202/98 H 97 08/20/17 12:13 08/20/17 14:00 08/20/17 12:13 08/20/17 12:13 08/20/17 12:13 Intake & Output 08/19/17 08/20/17 08/21/17 06:59 06:59 06:59 Intake Total 100 3300 Output Total 0 600 Balance 100 2700 Weight 108 kg 108 kg 108 kg Exam: Abdomen is soft and nontender. Results Laboratory Results: 08/20/17 06:47 08/20/17 06:47 08/20/17 08/20/17 06:47 06:47 WBC 5.9 RBC 4.02 L Hgb 12.5 L Hct 36.8 L MCV 92 MCH 31.1 MCHC 34.0 RDW 13.9 Plt Count 170 Seg Neutrophils % 68.5 Lymphocytes % 15.5 Monocytes % 12.1 Eosinophils % 3.3 Basophils % 0.6 Absolute Neutrophils 4.0 Absolute Lymphocytes 0.9 Absolute Monocytes 0.7 Absolute Eosinophils 0.2 Absolute Basophils 0.0 Sodium 140.2 Potassium 3.6 Chloride 106 Carbon Dioxide 24 Anion Gap 10 BUN 13 Creatinine 0.94 Est GFR ( Amer) > 60 Est GFR (Non-Af Amer) > 60 Glucose 164 H Calcium 7.9 L Total Bilirubin 0.4 AST 34 ALT 39 Alkaline Phosphatase 78 Total Protein 5.7 L Albumin 3.3 L Lipase 97.1 Impressions: Chest X-Ray 08/18/17 23:49 IMPRESSION: NO ACUTE RADIOGRAPHIC FINDING IN THE CHEST. Abdomen/Pelvis CT 08/18/17 23:58 IMPRESSION: 1. Epiploic appendagitis. 2. 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 The results of the examination have been personally discussed with the referring health care provider, BRADEN LOVETT, immediately following interpretation of the examination on 08/18/2017 11:42 PM HIGH SCHOOL PRINCIPAL. Abdomen X-Ray 08/20/17 00:00 IMPRESSION: Nonspecific nonobstructive bowel gas pattern KUB X-Ray 08/20/17 09:35 IMPRESSION: Nasogastric tube tip in the stomach, side port at the GE junction region Assessment & Plan - Diagnosis (1) colonic appendagitis Is this a current diagnosis for this admission?: Yes (2) Diabetes mellitus Qualifiers: Diabetes mellitus type: type 1 Diabetes mellitus complication status: with unspecified complications Qualified Code(s): E10.8 - Type 1 diabetes mellitus with unspecified complications Is this a current diagnosis for this admission?: Yes (3) History of schizophrenia Is this a current diagnosis for this admission?: Yes (4) Low back pain Qualifiers: Chronicity: chronic Back pain laterality: midline Sciatica presence: unspecified whether sciatica present Qualified Code(s): M54.5 - Low back pain Is this a current diagnosis for this admission?: Yes - Time Time Spent with patient: 15-24 minutes - Inpatient Certification Medical Necessity: Need For IV Fluids, Need for Pain Control - Plan Summary Plan Summary: Need for pain mx primarily for back pains No apparent intra-abdominal acute process at this time with being afebrile and normal WBC. Pt abdominal pains is suspicious for pain seeking. May need pain mx consult.
[2017-08-21] MEDS: MORPHINE SULFATE 10 MG/ML INJ IV PRN ×7 (00:38→22:12)
[2017-08-21] MEDS: PIPERACILLIN SODIUM/TAZOBACTAM 3.375 GM in NORMAL SALINE 100 ML IV SCH ×4 (02:52→22:12)
[2017-08-21] MEDS: METOCLOPRAMIDE HCL INJ/PF 10 MG/2 ML SDV IV SCH ×3 (05:27→22:12)
[2017-08-21] MEDS: HYDRALAZINE HCL INJ/PF 20 MG/1 ML SDV IV PRN ×2 (05:27→14:56)
[2017-08-21] MEDS: NORMAL SALINE 1000 ML 1,000 ML IV PRN (06:23)
[2017-08-21 07:00] LABS: ABSOLUTE EOSINOPHILS # (AUTO) 0.1 10^3/uL (0.0-0.6); ABSOLUTE LYMPHOCYTES (AUTO) 1.3 10^3/uL (0.5-4.7); ABSOLUTE MONOCYTES (AUTO) 1.1 10^3/uL (0.1-1.4); ABSOLUTE NEUT (AUTO) 7.6 10^3/uL (1.7-8.2); BASOPHILS % (AUTO) 0.3 % (0-2); EOSINOPHILS % (AUTO) 0.6 % (0-6); HEMATOCRIT 39.2 % (37.9-51.0); HEMOGLOBIN 13.5 g/dL (13.5-17.0); LYMPHOCYTES % (AUTO) 13.2 % (13-45); MEAN CORPUSCULAR HEMOGLOBIN 31.6 pg (27.0-33.4); MEAN CORPUSCULAR HGB CONC 34.3 g/dL (32.0-36.0); MEAN CORPUSCULAR VOLUME 92 fl (80-97); MONOCYTES % (AUTO) 10.6 % (3-13); PLATELET COUNT 222 10^3/uL (150-450); RED BLOOD COUNT 4.26 10^6/uL (4.35-5.55); RED CELL DISTRIBUTION WIDTH 14.1 % (11.5-14.0); SEGMENTED NEUTROPHILS % (AUTO) 75.3 % (42-78); TOTAL CELLS COUNTED % (AUTO) 100 %; WHITE BLOOD COUNT 10.1 10^3/uL (4.0-10.5)
[2017-08-21 07:25] LABS: BLOOD UREA NITROGEN 12 mg/dL (7-20); CALCIUM 8.9 mg/dL (8.4-10.2); CARBON DIOXIDE 20 mmol/L (22-30); GLUCOSE 183 mg/dL (75-110); MAGNESIUM 1.3 mg/dL (1.6-2.3); POTASSIUM 3.6 mmol/L (3.6-5.0); SODIUM 141.3 mmol/L (137-145)
[2017-08-21 07:38] LABS: ANION GAP 15 (5-19); CHLORIDE 106 mmol/L (98-107)
[2017-08-21] MEDS ORDERED: NORMAL SALINE 1000 ML 1,000 ML IV PRN (09:21)
--- NOTE | 2017-08-21 09:31 | PDOC PROGRESS REPORT ---
Subjective Progress Note for:: 08/21/17 Subjective:: Pt states that he is having flatus today. Pt reports that after the enema he did have some brown liquid like stool. Nursing states that patient has not requested for pain medication due to him stating that he is concerned that this is why he is having these abdominal problems now. There is also reports that there have been multiple family members questioning patient's medical care. Reason For Visit: COLONIC APPENDAGITIS,DM Physical Exam Vital Signs: Temp Pulse Resp BP Pulse Ox 97.7 F 111 H 16 179/74 H 97 08/21/17 00:35 08/21/17 07:00 08/21/17 00:35 08/21/17 00:35 08/21/17 00:35 Intake & Output 08/20/17 08/21/17 08/22/17 06:59 06:59 06:59 Intake Total 3300 1600 Output Total 600 1915 Balance 2700 -315 Weight 108 kg 108.2 kg General appearance: PRESENT: no acute distress, well-developed, well-nourished, other - Patient sleeping when arriving to room. Head exam: PRESENT: atraumatic, normocephalic Eye exam: PRESENT: conjunctiva pink, EOMI. ABSENT: scleral icterus Ear exam: PRESENT: normal external ear exam Mouth exam: PRESENT: moist, tongue midline Neck exam: ABSENT: carotid bruit, JVD, lymphadenopathy, thyromegaly Respiratory exam: PRESENT: clear to auscultation michela. ABSENT: rales, rhonchi, wheezes Cardiovascular exam: PRESENT: RRR. ABSENT: diastolic murmur, rubs, systolic murmur Pulses: PRESENT: normal dorsalis pedis pul Vascular exam: PRESENT: normal capillary refill GI/Abdominal exam: PRESENT: other - Positive for bowel sounds, abdomen not as distended as yesterday, NG tube is in place and patient had out approximately 600-750 cc of fluid brown in color Rectal exam: PRESENT: deferred Extremities exam: PRESENT: full ROM. ABSENT: calf tenderness, clubbing, pedal edema Musculoskeletal exam: PRESENT: full ROM Neurological exam: PRESENT: alert, awake, oriented to person, oriented to place , oriented to time, oriented to situation, CN II-XII grossly intact. ABSENT: motor sensory deficit Psychiatric exam: PRESENT: appropriate affect, normal mood. ABSENT: homicidal ideation, suicidal ideation Skin exam: PRESENT: dry, intact, warm. ABSENT: cyanosis, rash Results Laboratory Results: 08/21/17 06:20 08/21/17 06:20 08/21/17 08/21/17 06:20 06:20 WBC 10.1 RBC 4.26 L Hgb 13.5 Hct 39.2 MCV 92 MCH 31.6 MCHC 34.3 RDW 14.1 H Plt Count 222 Seg Neutrophils % 75.3 Lymphocytes % 13.2 Monocytes % 10.6 Eosinophils % 0.6 Basophils % 0.3 Absolute Neutrophils 7.6 Absolute Lymphocytes 1.3 Absolute Monocytes 1.1 Absolute Eosinophils 0.1 Absolute Basophils 0.0 Sodium 141.3 Potassium 3.6 Chloride 106 Carbon Dioxide 20 L Anion Gap 15 BUN 12 Creatinine 0.90 Est GFR ( Amer) > 60 Est GFR (Non-Af Amer) > 60 Glucose 183 H Calcium 8.9 Magnesium 1.3 L Impressions: Chest X-Ray 08/18/17 23:49 IMPRESSION: NO ACUTE RADIOGRAPHIC FINDING IN THE CHEST. Abdomen/Pelvis CT 08/18/17 23:58 IMPRESSION: 1. Epiploic appendagitis. 2. 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 The results of the examination have been personally discussed with the referring health care provider, BRADEN LOVETT, immediately following interpretation of the examination on 08/18/2017 11:42 PM EYELET MAKER. Abdomen X-Ray 08/20/17 00:00 IMPRESSION: Nonspecific nonobstructive bowel gas pattern KUB X-Ray 08/20/17 09:35 IMPRESSION: Nasogastric tube tip in the stomach, side port at the GE junction region Assessment & Plan - Diagnosis (1) Ileus Is this a current diagnosis for this admission?: Yes Plan: Suspect Partial ileus Secondary to Opioid use: NG tube in place surgery recommending removing. Will continue Reglan. Will repeat enema. (2) Abdominal pain Qualifiers: Abdominal location: generalized Qualified Code(s): R10.84 - Generalized abdominal pain Is this a current diagnosis for this admission?: Yes Plan: Suspect secondary to partial ileus Secondary to opioid use and Epiploic Appendagitis: NG tube in place however surgery recommending removal. Will continue Reglan. Will also write for repeat enema (3) colonic appendagitis Is this a current diagnosis for this admission?: Yes Plan: Epiploic Appendagitis: Supportive care. (4) Hypertension Is this a current diagnosis for this admission?: Yes Plan: Will add clonidine patch. We will continue other medications that are IV. (5) Diabetes mellitus Qualifiers: Diabetes mellitus type: type 1 Diabetes mellitus complication status: with unspecified complications Qualified Code(s): E10.8 - Type 1 diabetes mellitus with unspecified complications Is this a current diagnosis for this admission?: Yes Plan: Will continue SSI (6) Hyperlipidemia Qualifiers: Hyperlipidemia type: unspecified Qualified Code(s): E78.5 - Hyperlipidemia , unspecified Plan: Patient will resume home medication when able to take p.o. (7) Opioid dependence Is this a current diagnosis for this admission?: Yes Plan: Patient's partial ileus is secondary to opioid dependency: Have recommended that patient decrease pain medication use. (8) DVT prophylaxis Is this a current diagnosis for this admission?: Yes Plan: SCDs - Time Time Spent with patient: 15-24 minutes - Appreciate the consult will continue to follow along with patient's care.
[2017-08-21] MEDS: CALCIUM CARBONATE 500 MG TAB.CHEW NG SCH ×4 (10:05→22:11)
[2017-08-21] MEDS: ENALAPRILAT DIHYDRATE INJ/PF 1.25 MG/1 ML SDV IV SCH ×2 (10:16→22:12)
[2017-08-21] MEDS ORDERED: CLONIDINE 0.1 MG/24 HR PATCH.TDWK TD SCH (11:00)
--- NOTE | 2017-08-21 23:07 | PDOC PROGRESS REPORT ---
Subjective Progress Note for:: 08/21/17 Subjective:: [place] better after enema. No pains Reason For Visit: COLONIC APPENDAGITIS,DM Physical Exam Vital Signs: Temp Pulse Resp BP Pulse Ox 98.0 F 121 H 17 179/90 H 97 08/21/17 16:31 08/21/17 16:31 08/21/17 16:31 08/21/17 16:31 08/21/17 16:31 Intake & Output 08/20/17 08/21/17 08/22/17 06:59 06:59 06:59 Intake Total 3300 1600 Output Total 600 1915 1500 Balance 2700 -315 -1500 Weight 108 kg 108.2 kg Exam: Abdomen is soft and nontender. Results Laboratory Results: 08/21/17 06:20 08/21/17 06:20 08/21/17 08/21/17 06:20 06:20 WBC 10.1 RBC 4.26 L Hgb 13.5 Hct 39.2 MCV 92 MCH 31.6 MCHC 34.3 RDW 14.1 H Plt Count 222 Seg Neutrophils % 75.3 Lymphocytes % 13.2 Monocytes % 10.6 Eosinophils % 0.6 Basophils % 0.3 Absolute Neutrophils 7.6 Absolute Lymphocytes 1.3 Absolute Monocytes 1.1 Absolute Eosinophils 0.1 Absolute Basophils 0.0 Sodium 141.3 Potassium 3.6 Chloride 106 Carbon Dioxide 20 L Anion Gap 15 BUN 12 Creatinine 0.90 Est GFR ( Amer) > 60 Est GFR (Non-Af Amer) > 60 Glucose 183 H Calcium 8.9 Magnesium 1.3 L Impressions: Chest X-Ray 08/18/17 23:49 IMPRESSION: NO ACUTE RADIOGRAPHIC FINDING IN THE CHEST. Abdomen/Pelvis CT 08/18/17 23:58 IMPRESSION: 1. Epiploic appendagitis. 2. 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 Abdomen X-Ray 08/20/17 00:00 IMPRESSION: Nonspecific nonobstructive bowel gas pattern KUB X-Ray 08/20/17 09:35 IMPRESSION: Nasogastric tube tip in the stomach, side port at the GE junction region Assessment & Plan - Diagnosis (1) colonic appendagitis Is this a current diagnosis for this admission?: Yes (2) Diabetes mellitus Qualifiers: Diabetes mellitus type: type 1 Diabetes mellitus complication status: with unspecified complications Qualified Code(s): E10.8 - Type 1 diabetes mellitus with unspecified complications Is this a current diagnosis for this admission?: Yes (3) History of schizophrenia Is this a current diagnosis for this admission?: Yes (4) Low back pain Qualifiers: Chronicity: chronic Back pain laterality: midline Sciatica presence: unspecified whether sciatica present Qualified Code(s): M54.5 - Low back pain Is this a current diagnosis for this admission?: Yes - Time Time Spent with patient: 15-24 minutes - Inpatient Certification Medical Necessity: Need For IV Fluids, Need for IV Antibiotics - Plan Summary Plan Summary: Has g+ cocci and anaerobes on blood culture.Need continued antibiotics for now though patient feeling a lot better. Etiology of bacteria may be from colon. Continue Zosyn OK to have another enema Has flatus and abd is soft and nontender. NGT may be d/c then gradually start po diet.
[2017-08-22] MEDS: MORPHINE SULFATE 10 MG/ML INJ IV PRN (02:02)
[2017-08-22] MEDS: HYDRALAZINE HCL INJ/PF 20 MG/1 ML SDV IV PRN (02:03)
[2017-08-22] MEDS: PIPERACILLIN SODIUM/TAZOBACTAM 3.375 GM in NORMAL SALINE 100 ML IV SCH ×4 (03:33→22:57)
[2017-08-22] MEDS: KETOROLAC TROMETHAMINE INJ/PF 30 MG/1 ML SDV IV PRN (03:33)
[2017-08-22] MEDS: METOCLOPRAMIDE HCL INJ/PF 10 MG/2 ML SDV IV SCH ×3 (08:22→22:57)
--- NOTE | 2017-08-22 08:42 | PDOC PROGRESS REPORT ---
Subjective Progress Note for:: 08/22/17 Subjective:: Feels well. No nausea. Having bowel movements. States that abdomen is back to baseline. Denies any abdominal pain Reason For Visit: COLONIC APPENDAGITIS,DM Physical Exam Vital Signs: Temp Pulse Resp BP Pulse Ox 97.7 F 119 H 18 188/109 H 98 08/22/17 03:53 08/22/17 03:53 08/22/17 03:53 08/22/17 03:53 08/22/17 03:53 Intake & Output 08/21/17 08/22/17 08/23/17 06:59 06:59 06:59 Intake Total 1600 0 Output Total 1915 2100 Balance -315 -2100 Weight 108.2 kg 108.2 kg General appearance: PRESENT: no acute distress, cooperative Respiratory exam: PRESENT: clear to auscultation michela Cardiovascular exam: PRESENT: RRR GI/Abdominal exam: PRESENT: other - Soft, obese and protuberant but patient states that he does not feel distended. No tenderness. Results Laboratory Results: 08/21/17 06:20 08/21/17 06:20 Impressions: Chest X-Ray 08/18/17 23:49 IMPRESSION: NO ACUTE RADIOGRAPHIC FINDING IN THE CHEST. Abdomen/Pelvis CT 08/18/17 23:58 IMPRESSION: 1. Epiploic appendagitis. 2. 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 Abdomen X-Ray 08/20/17 00:00 IMPRESSION: Nonspecific nonobstructive bowel gas pattern KUB X-Ray 08/20/17 09:35 IMPRESSION: Nasogastric tube tip in the stomach, side port at the GE junction region Assessment & Plan - Diagnosis (1) colonic appendagitis Is this a current diagnosis for this admission?: Yes Plan: Resolving with antibiotics. Bowel function is returned. Will DC NG tube and start clear liquids. Possible discharge the patient home tomorrow if he continues to do well.
[2017-08-22] MEDS ORDERED: LISINOPRIL 10 MG TABLET PO ONE (09:29)
[2017-08-22] MEDS ORDERED: ASPIRIN 81 MG TABLET, CHEWABLE PO SCH (10:00)
[2017-08-22] MEDS ORDERED: DULOXETINE HCL 30 MG CAPSULE.DR PO SCH (10:00)
[2017-08-22] MEDS ORDERED: LISINOPRIL 10 MG TABLET PO SCH (10:00)
[2017-08-22] MEDS ORDERED: NIFEDIPINE 30 MG TAB.ER.24 PO SCH (10:00)
[2017-08-22] MEDS ORDERED: MULTIVITAMIN TABLET PO SCH (10:00)
[2017-08-22] MEDS: CALCIUM CARBONATE 500 MG TAB.CHEW NG SCH ×4 (10:24→22:56)
[2017-08-22] MEDS: INSULIN LISPRO 100 UNIT/ML 3 ML VIAL SUBCUT PRN ×2 (14:01→23:21)
[2017-08-22] MEDS: GABAPENTIN 300 MG CAPSULE PO SCH ×2 (14:01→22:57)
[2017-08-22] MEDS ORDERED: VANCOMYCIN HCL 0 MG in DEXTROSE 5%-WATER 250 ML IV NR (20:30)
--- NOTE | 2017-08-22 20:36 | PDOC PROGRESS REPORT ---
Subjective Progress Note for:: 08/22/17 Subjective:: Pt seen earlier this morning. Pt states that he has had multiple bowel movements. Pt states that he would like to eat. Nursing states that pt's blood pressure is elevated. Reason For Visit: COLONIC APPENDAGITIS,DM Physical Exam Vital Signs: Temp Pulse Resp BP Pulse Ox 98.0 F 115 H 20 172/96 H 97 08/22/17 15:09 08/22/17 15:09 08/22/17 15:09 08/22/17 15:09 08/22/17 15:09 Intake & Output 08/21/17 08/22/17 08/23/17 06:59 06:59 06:59 Intake Total 4409 630 0044 Output Total 1915 2100 200 Balance -315 -1200 888 Weight 108.2 kg 108.2 kg General appearance: PRESENT: no acute distress, well-developed, well-nourished Head exam: PRESENT: atraumatic, normocephalic Eye exam: PRESENT: conjunctiva pink, EOMI. ABSENT: scleral icterus Ear exam: PRESENT: normal external ear exam Mouth exam: PRESENT: moist, tongue midline Neck exam: ABSENT: carotid bruit, JVD, lymphadenopathy, thyromegaly Respiratory exam: PRESENT: clear to auscultation michela. ABSENT: rales, rhonchi, wheezes Cardiovascular exam: PRESENT: RRR. ABSENT: diastolic murmur, rubs, systolic murmur Pulses: PRESENT: normal dorsalis pedis pul Vascular exam: PRESENT: normal capillary refill GI/Abdominal exam: PRESENT: normal bowel sounds, soft. ABSENT: distended, guarding, mass, organolmegaly, rebound, tenderness Rectal exam: PRESENT: deferred Extremities exam: PRESENT: full ROM. ABSENT: calf tenderness, clubbing, pedal edema Neurological exam: PRESENT: alert, awake, oriented to person, oriented to place , oriented to time, oriented to situation, CN II-XII grossly intact. ABSENT: motor sensory deficit Psychiatric exam: PRESENT: appropriate affect, normal mood. ABSENT: homicidal ideation, suicidal ideation Skin exam: PRESENT: dry, intact, warm. ABSENT: cyanosis, rash Results Laboratory Results: 08/21/17 06:20 08/21/17 06:20 Impressions: Chest X-Ray 08/18/17 23:49 IMPRESSION: NO ACUTE RADIOGRAPHIC FINDING IN THE CHEST. Abdomen/Pelvis CT 08/18/17 23:58 IMPRESSION: 1. Epiploic appendagitis. 2. 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 Abdomen X-Ray 08/20/17 00:00 IMPRESSION: Nonspecific nonobstructive bowel gas pattern KUB X-Ray 08/20/17 09:35 IMPRESSION: Nasogastric tube tip in the stomach, side port at the GE junction region Assessment & Plan - Diagnosis (1) Ileus Is this a current diagnosis for this admission?: Yes Plan: Suspect Partial ileus Secondary to Opioid use: Resolved. Pt placed on diet and NG tube removed. (2) Abdominal pain Qualifiers: Abdominal location: generalized Qualified Code(s): R10.84 - Generalized abdominal pain Is this a current diagnosis for this admission?: Yes Plan: Suspect secondary to partial ileus Secondary to opioid use and Epiploic Appendagitis: Resolved. Pt placed on diet. NGT removed. (3) colonic appendagitis Is this a current diagnosis for this admission?: Yes Plan: Epiploic Appendagitis: Supportive care. (4) Hypertension Is this a current diagnosis for this admission?: Yes Plan: Will add procardia, increase lisinopril, and add Hydralazine. (5) Diabetes mellitus Qualifiers: Diabetes mellitus type: type 1 Diabetes mellitus complication status: with unspecified complications Qualified Code(s): E10.8 - Type 1 diabetes mellitus with unspecified complications Is this a current diagnosis for this admission?: Yes Plan: Will continue SSI (6) Hyperlipidemia Qualifiers: Hyperlipidemia type: unspecified Qualified Code(s): E78.5 - Hyperlipidemia , unspecified Plan: Statin (7) Opioid dependence Is this a current diagnosis for this admission?: Yes Plan: Patient's partial ileus is secondary to opioid dependency: Resolved. (8) DVT prophylaxis Is this a current diagnosis for this admission?: Yes Plan: SCDs - Time Time Spent with patient: 15-24 minutes
[2017-08-22] MEDS ORDERED: ATORVASTATIN CALCIUM 10 MG TABLET PO SCH (22:00)
[2017-08-22] MEDS ORDERED: VANCOMYCIN HCL 1,500 MG in DEXTROSE 5%-WATER 250 ML IV SCH (22:00)
[2017-08-22] MEDS: HYDRALAZINE HCL 50 MG TABLET PO SCH (22:57)
[2017-08-23] MEDS: PIPERACILLIN SODIUM/TAZOBACTAM 3.375 GM in NORMAL SALINE 100 ML IV SCH (03:15)
[2017-08-23] MEDS: HYDRALAZINE HCL INJ/PF 20 MG/1 ML SDV IV PRN (04:14)
[2017-08-23] MEDS: METOCLOPRAMIDE HCL INJ/PF 10 MG/2 ML SDV IV SCH (05:43)
[2017-08-23] MEDS: GABAPENTIN 300 MG CAPSULE PO SCH (05:43)
[2017-08-23] MEDS: HYDRALAZINE HCL 50 MG TABLET PO SCH (05:43)
[2017-08-23 08:51] VITALS: BP 151/77
--- NOTE | 2017-08-23 09:30 | PDOC DISCHARGE SUMMARY ---
Discharge Summary (SDC) - Discharge Final Diagnosis: Epiploica appendagitis Constipation Discharge Date: 08/23/17 Condition: Good Referrals: WINSOME TOLENTINO MD [COMMUNITY BASED STAFF] - Respiratory Treatments at Home: Deep Breathing/Coughing Discharge Activity: Activity As Tolerated Home Care Assistance: None Needed Report the Following to Your Physician Immediately: Shortness of Breath, Nausea , Vomiting, Increase in Pain, Signs of Hyperglycemia, Signs of Hypoglycemia, Fever over 101 Degrees, IV Site Infection Signs
--- NOTE | 2017-09-19 10:43 | DISCHARGE SUMMARY E ---
Discharge Summary NAME: SATHISH ORNELAS : 1945 AGE: 72Y ADMITTED: 08/19/2017 DISCHARGED: 08/23/2017 HISTORY OF PRESENT ILLNESS: The patient is a 72-year-old male with a history of diabetes, remote history of necrotizing pancreatitis with debridement, who presented to the Emergency Department complaining of nausea and vomiting. He had a CT scan of the abdomen and pelvis which showed findings concerning for small bowel obstruction. The patient was admitted to the Surgicalist Service for further management. Past medical and surgical history can be found in the history and physical document. SUMMARY OF HOSPITALIZATION: The patient was kept n.p.o. on IV fluids. A nasogastric tube was inserted with symptomatic relief. Over the next several days, the patient's clinical condition improved. He developed no signs of sepsis. Eventually, the nasogastric tube was removed; he was started on a diet and had reliable gastrointestinal function. His pain was acceptably controlled with oral pain medication. By the fifth hospital day, the patient was tolerating a diet, afebrile, and normal laboratory profile. By this time, patient was felt to have received maximum benefit from hospitalization and was discharged home. FINAL DIAGNOSES: 1. SMALL BOWEL OBSTRUCTION, PARTIAL, RESOLVED. 2. HISTORY OF CHRONIC PAIN CONDITION, MANAGED BY [facility]. 3. HISTORY OF DIABETES MELLITUS, CONTROLLED. 4. HISTORY OF STEROID DEPENDENCY, CHRONIC. DISPOSITION: Patient will be discharged home to the care of his family; he will follow up primary care as previously scheduled; he will follow up with Surgical Services on an as-needed basis. DICTATING PHYSICIAN: ОЛЕГ TOLEDO M.D. [id number] PHY#: [id number] ID: [id number] JOB#: [id number] ACCT: [id number] cc:Edward BERNABE M.D. >
== END 2017-08-23 09:43 | disposition home or self-care (01) | DRG 394 ==
LOC: ER 23:23 → EH 08-19 02:57 → 5 08-19 05:15
PROVIDERS: ADMIT Surgery; ATTEND Surgery
PROC: 0D9670Z Drainage of Stomach with Drainage Device, Via Natural or Artificial Opening (ICD-10-PCS; principal; 2017-08-20)
DX: K63.89 Other specified diseases of intestine (principal); E87.2 Acidosis; G89.29 Other chronic pain; K59.00 Constipation, unspecified; I10 Essential (primary) hypertension; K57.10 Diverticulosis of small intestine without perforation or abscess without bleeding; E78.5 Hyperlipidemia, unspecified; M19.90 Unspecified osteoarthritis, unspecified site; L40.9 Psoriasis, unspecified; F43.10 Post-traumatic stress disorder, unspecified; E10.8 Type 1 diabetes mellitus with unspecified complications; F41.9 Anxiety disorder, unspecified; M54.5 Low back pain; F20.9 Schizophrenia, unspecified; T40.2X5A Adverse effect of other opioids, initial encounter; K56.7 Ileus, unspecified; E66.01 Morbid (severe) obesity due to excess calories; Z68.37 Body mass index [BMI] 37.0-37.9, adult; Z86.711 Personal history of pulmonary embolism; Z90.49 Acquired absence of other specified parts of digestive tract; Z87.891 Personal history of nicotine dependence; Z79.891 Long term (current) use of opiate analgesic; Z79.82 Long term (current) use of aspirin; Z79.4 Long term (current) use of insulin; Z79.899 Other long term (current) drug therapy; Z88.3 Allergy status to other anti-infective agents; Z88.2 Allergy status to sulfonamides; Z83.3 Family history of diabetes mellitus; Z80.1 Family history of malignant neoplasm of trachea, bronchus and lung; Z82.49 Family history of ischemic heart disease and other diseases of the circulatory system
CPT/HCPCS: 36415; 71045; 74018; 74019; 74177; 80048; 80053; 81001; 82550; 82803; 82962; 83605; 83690; 83735; 84484; 85025; 87040; 87077; 87186; 93005; 93010; 96361; 96365; 96375; 96376; 99285; J0360; J1815; J1885; J2270; J2405; J2543; J2765; J3370; J3490; J7030; J7060

== ENCOUNTER 2017-08-27 13:50 | Inpatient (IN) | payer MEDICARE, OTHER ==
[2017-08-27] MEDS ORDERED: NORMAL SALINE 1000 ML 1,000 ML IV ONE (14:21)
[2017-08-27] MEDS ORDERED: DILTIAZEM HCL INJ 25 MG/5 ML VIAL IV ONE (14:23)
--- NOTE | 2017-08-27 14:29 | ER Document Report ---
ED General - General Stated Complaint: SHORTNESS OF BREATH Time Seen by Provider: 08/27/17 14:11 Mode of Arrival: Medic Information source: Patient TRAVEL OUTSIDE OF THE [place] IN LAST 30 DAYS: No - HPI Patient complains to provider of: sob Onset: This morning Onset/Duration: Sudden Quality of pain: No pain Associated symptoms: Shortness of breath Exacerbated by: Movement, Walking Relieved by: Denies Similar symptoms previously: No Recently seen / treated by doctor: Yes - discharged fri from here(ileus) - Related Data Allergies/Adverse Reactions: Sulfa (Sulfonamide Antibiotics) Allergy (Unknown, Verified 05/03/15 15:41) ciprofloxacin [From Cipro] Allergy (Verified 05/03/15 15:41) Past Medical History - General Information source: Patient - Social History Smoking Status: Former Smoker Frequency of alcohol use: None Drug Abuse: None Lives with: Alone, Other - staying with girlfriend since discharged from hospital Family History: DM, Malignancy - Lungs CTA, Other - CHF Patient has suicidal ideation: No Patient has homicidal ideation: No - Past Medical History Cardiac Medical History: Reports: Hx Hypercholesterolemia - meds x 10 years, Hx Hypertension - meds x 15 years, Hx Pulmonary Embolism - 2012, post-op Denies: Hx Atrial Fibrillation, Hx Congestive Heart Failure, Hx Coronary Artery Disease, Hx Heart Attack, Hx Peripheral Vascular Disease, Hx Heart Murmur Pulmonary Medical History: Denies: Hx Asthma, Hx Bronchitis, Hx COPD, Hx Pneumonia, Hx Respiratory Failure, Hx Sleep Apnea, Hx Tuberculosis Neurological Medical History: Endocrine Medical History: Reports: Hx Diabetes Mellitus Type 1, Hx Diabetes Mellitus Type 2. Denies: Hx Graves' Disease, Hx Hyperthyroidism, Hx Hypothyroidism Renal/ Medical History: Denies: Hx Peritoneal Dialysis Malignancy Medical History: Denies Hx Leukemia, Denies Hx Lung Cancer GI Medical History: Reports: Hx Pancreatitis - 2013 & exc pseudocyst. Denies: Hx Crohn's Disease, Hx Gastroesophageal Reflux Disease, Hx Hiatal Hernia, Hx Irritable Bowel, Hx Liver Failure, Hx Ulcer Musculoskeltal Medical History: Reports Hx Arthritis, Denies Hx Fibromyalgia, Denies Hx Muscular Dystrophy Skin Medical History: Reports Hx Psoriasis Psychiatric Medical History: Reports: Hx Depression - Hx of, denies issues since 2012, Hx Post Traumatic Stress Disorder, Hx Schizophrenia - no meds at present, Dx'ed after ETOH cessation Denies: Hx Bipolar Disorder Traumatic Medical History: Denies: Hx Fractures Infectious Medical History: Denies: Hx HIV Past Surgical History: Reports: Hx Abdominal Surgery - Secondary to pancreatitis , Hx Cholecystectomy - lap , Hx Tonsillectomy. Denies: Hx Appendectomy, Hx Bowel Surgery, Hx Colostomy, Hx Coronary Artery Bypass Graft, Hx Gastric Bypass Surgery, Hx Herniorrhaphy, Hx Pacemaker - Immunizations Immunizations up to date: Yes Hx Diphtheria, Pertussis, Tetanus Vaccination: Yes Hx Pneumococcal Vaccination: 08/12/11 Review of Systems - Review of Systems Constitutional: No symptoms reported Cardiovascular: Other. denies: Chest pain Respiratory: Short of breath Gastrointestinal: No symptoms reported Genitourinary: No symptoms reported Male Genitourinary: No symptoms reported Musculoskeletal: No symptoms reported Skin: No symptoms reported Hematologic/Lymphatic: No symptoms reported Neurological/Psychological: No symptoms reported Physical Exam - Vital signs Vitals: Temp Resp BP Pulse Ox 97.4 F 16 139/76 H 100 08/27/17 14:05 08/27/17 14:05 08/27/17 14:05 08/27/17 14:05 BP 90/66 it is now increased to 136 over 70s pulse ox was 80% on room air now is 100% on 2 L respiratory rate 14 heart rate 126 Interpretation: Hypotensive, Tachycardic - Notes Notes: PHYSICAL EXAMINATION: GENERAL: Well-appearing, well-nourished and in no acute distress. Patient does appear pale. HEAD: Atraumatic, normocephalic. EYES: Pupils equal round and reactive to light, extraocular movements intact, sclera anicteric, conjunctiva are normal. ENT: Nares patent, oropharynx clear without exudates. Moist mucous membranes. NECK: Normal range of motion, supple without lymphadenopathy LUNGS: Breath sounds clear to auscultation bilaterally and equal. No wheezes rales or rhonchi. HEART: Irregularly irregular and tacky ABDOMEN: nontender, nondistended abdomen. No guarding, no rebound. No masses appreciated. Musculoskeletal: Normal range of motion, no pitting or edema. No cyanosis. NEUROLOGICAL: Cranial nerves grossly intact. Normal speech. Normal sensory, motor exams PSYCH: Normal mood, normal affect. SKIN: Warm, Dry, normal turgor, no rashes or lesions noted. - Rectal Stool: Heme positive, Other - Stool not grossly bloody Course - Re-evaluation Re-evalutation: 08/27/17 16:07 Patient will get a CTA to rule out PE since he was hypoxic as per EMS. He will also get a guaiac stool to make sure he is not bleeding as his hemoglobin has dropped. I did discuss the case with -notify her when CTAs back 08/27/17 17:[address] Rodriguez accepts - Vital Signs Vital signs: Temp Pulse Resp BP Pulse Ox 97.4 F 15 127/79 H 100 08/27/17 14:05 08/27/17 19:00 08/27/17 18:01 08/27/17 19:00 - Laboratory Result Diagrams: 08/27/17 14:23 08/27/17 14:23 Laboratory results interpreted by me: 08/27/17 08/27/17 08/27/17 14:23 14:23 14:23 RBC 3.03 L Hgb 9.8 L Hct 28.0 L APTT Carbon Dioxide 21 L BUN 23 H Glucose 135 H NT-Pro-B Natriuret Pep 2930 H Total Protein 5.7 L Albumin 3.4 L 08/27/17 14:23 RBC Hgb Hct APTT 36.5 H Carbon Dioxide BUN Glucose NT-Pro-B Natriuret Pep Total Protein Albumin - Diagnostic Test Radiology reviewed: Image reviewed, Reports reviewed - EKG Interpretation by Me Rhythm: A.Fib - Ventricular rate 124 When compared to previous EKG there are: Changes noted - Acute ST elevation or depression. Last EKG done 08/18/2017 showed sinus tach at 119 Critical Care Note - Critical Care Note Total time excluding time spent on procedures (mins): 45 Comments: 45 minutes of critical care time spent in direct contact evaluating and reevaluating the patient, treating symptoms, reviewing labs and studies and speaking with family and consultants excluding any procedures Discharge - Discharge Clinical Impression: Atrial fibrillation, Anemia Condition: Good Disposition: ADMITTED INPATIENT Admitting Provider: Hospitalist - Dr. Rodriguez Unit Admitted: [facility]
[2017-08-27 14:39] LABS: ABSOLUTE BASOPHILS # (AUTO) 0.1 10^3/uL (0.0-0.2); ABSOLUTE EOSINOPHILS # (AUTO) 0.1 10^3/uL (0.0-0.6); ABSOLUTE LYMPHOCYTES (AUTO) 1.7 10^3/uL (0.5-4.7); ABSOLUTE MONOCYTES (AUTO) 0.9 10^3/uL (0.1-1.4); BASOPHILS % (AUTO) 1.4 % (0-2); EOSINOPHILS % (AUTO) 0.7 % (0-6); HEMOGLOBIN 9.8 g/dL (13.5-17.0); LYMPHOCYTES % (AUTO) 16.9 % (13-45); MEAN CORPUSCULAR HEMOGLOBIN 32.4 pg (27.0-33.4); MEAN CORPUSCULAR HGB CONC 34.9 g/dL (32.0-36.0); MEAN CORPUSCULAR VOLUME 93 fl (80-97); MONOCYTES % (AUTO) 9.1 % (3-13); PLATELET COUNT 264 10^3/uL (150-450); RED BLOOD COUNT 3.03 10^6/uL (4.35-5.55); RED CELL DISTRIBUTION WIDTH 13.9 % (11.5-14.0); SEGMENTED NEUTROPHILS % (AUTO) 71.9 % (42-78); TOTAL CELLS COUNTED % (AUTO) 100 %; WHITE BLOOD COUNT 9.8 10^3/uL (4.0-10.5)
[2017-08-27 14:45] LABS: INTERNATIONAL RATION (INR) 0.98; PROTHROMBIN TIME 13.7 SEC (11.4-15.4)
--- NOTE | 2017-08-27 14:45 | RADIOLOGY REPORT (SQ) ---
EXAM DESCRIPTION: CHEST SINGLE VIEW COMPLETED DATE/TIME: 08/27/2017 2:25 pm REASON FOR STUDY: sob COMPARISON: CT chest 06/16/2016 Chest films 11/08/2016, 08/19/2017 EXAM PARAMETERS: NUMBER OF VIEWS: One view. TECHNIQUE: Single frontal radiographic view of the chest acquired. RADIATION DOSE: NA LIMITATIONS: Large patient, portable technique FINDINGS: LUNGS AND PLEURA: No opacities, masses or pneumothorax. No pleural effusion. MEDIASTINUM AND HILAR STRUCTURES: No masses. Contour normal. HEART AND VASCULAR STRUCTURES: Heart normal in size. Normal vasculature. BONES: No acute findings. HARDWARE: None in the chest. OTHER: No other significant finding. IMPRESSION: NO ACUTE RADIOGRAPHIC FINDING IN THE CHEST. TECHNICAL DOCUMENTATION: JOB ID: [id number] [employer]- All Rights Reserved
[2017-08-27 14:46] LABS: PARTIAL THROMBOPLASTIN TIME 36.5 SEC (23.5-35.8)
[2017-08-27] MEDS ORDERED: OXYCODONE HCL IR 5 MG TABLET PO ONE (14:55)
[2017-08-27 15:05] LABS: ALANINE AMINOTRANSFERASE 58 U/L (21-72); ALBUMIN 3.4 g/dL (3.5-5.0); ALKALINE PHOSPHATASE 53 U/L (38-126); ANION GAP 14 (5-19); ASPARTATE AMINO TRANSFERASE 57 U/L (17-59); BILIRUBIN,DIRECT 0.3 mg/dL (0.0-0.4); BILIRUBIN,TOTAL 0.5 mg/dL (0.2-1.3); BLOOD UREA NITROGEN 23 mg/dL (7-20); CALCIUM 9.4 mg/dL (8.4-10.2); CARBON DIOXIDE 21 mmol/L (22-30); CHLORIDE 106 mmol/L (98-107); GLUCOSE 135 mg/dL (75-110); POTASSIUM 4.2 mmol/L (3.6-5.0); SODIUM 140.7 mmol/L (137-145); TOTAL PROTEIN 5.7 g/dL (6.3-8.2)
[2017-08-27] MEDS: DILTIAZEM HCL/D5W 125 MG/125 ML RTUINJ IV PRN (15:16)
[2017-08-27 15:17] LABS: TROPONIN I 0.018 ng/mL
--- NOTE | 2017-08-27 16:38 | RADIOLOGY REPORT (SQ) ---
EXAM DESCRIPTION: CTA CHEST COMPLETED DATE/TIME: 08/27/2017 4:22 pm REASON FOR STUDY: hypoxic COMPARISON: CT chest 06/02/2012, 03/19/2016, 06/16/2016 TECHNIQUE: CT scan of the chest performed using helical scanning technique with dynamic intravenous contrast injection. Images reviewed with lung, soft tissue and bone windows. Reconstructed coronal and sagittal MPR images reviewed. Additional 3 dimensional post-processing performed to develop Maximal Intensity Projection images (UT P). All images stored on PACS. All CT scanners at this facility use dose modulation, iterative reconstruction, and/or weight based d osing when appropriate to reduce radiation dose to as low as reasonably achievable (ALARA). [facility]: Dose Right [facility]: CareDose [facility]: Dose Right [facility]: Teradose 4D [facility]: Kumo CONTRAST TYPE AND DOSE: contrast/concentration: Isovue 370.00 mg/ml; Total Contrast Delivered: 82.0 ml; Total Saline Delivered: 100.0 ml Contrast bolus optimized for the pulmonary arteries. Not diagnostic for the aorta. RENAL FUNCTION: Creatinine 1.2 RADIATION DOSE: CT Rad equipment meets quality standard of care and radiation dose reduction techniq ues were employed. CTDIvol: 26.4 - 29.6 mGy. DLP: 1145 mGy-cm. . LIMITATIONS: None. FINDINGS: LUNGS AND PLEURA: Stable bandlike scarring or atelectasis in the left lower lobe. No worr isome pulmonary nodules. No acute infiltrates. No effusion. No pneumothorax. AORTA AND GREAT VESSELS: No aneurysm. Contrast bolus not optimized for the aorta. HEART: No pericardial effusion. No significant coronary artery calcifications. PULMONARY ARTERIES: No emboli visualized in the main pulmonary arteries or the segmental branches. HILAR AND MEDIASTINAL STRUCTURES: No identified masses or abnormal nodes. HARDWARE: None in the chest. UPPER ABDOMEN: Clips post cholecystectomy THYROID AND OTHER SOFT TISSUES: No masses. No adenopathy. BONES: No acute or significant finding. 3D MIPS: Confirm above findings. OTHER: No other significant finding. IMPRESSION: No CT angio evidence of acute pulmonary emboli. No acute infiltrates or pleural effusions. COMMENT: Quality ID # [id number]: Final reports with documentation of one or more dose reduction techniques (e.g., Automated exposure control, adjustment of the mA and/or kV according to patient size, use of iterative reconstruction technique) TECHNICAL DOCUMENTATION: JOB ID: [id number] [place] [address] [employer]- All Rights Reserved
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
[2017-08-27] MEDS ORDERED: TEMAZEPAM 15 MG CAPSULE PO PRN (18:17)
[2017-08-27] MEDS ORDERED: ONDANSETRON HCL INJ/PF 4 MG/2 ML SDV IV PRN (18:17)
[2017-08-27] MEDS ORDERED: DEXTROSE 50%-WATER 25 GM/50 ML DISP.SYRIN IV PRN ×2 (18:31)
[2017-08-27] MEDS ORDERED: DEXTROSE 40% GEL 15 GM TUBE PO PRN ×2 (18:31)
[2017-08-27] MEDS ORDERED: GLUCAGON,HUMAN RECOMB 1 MG INJ IM PRN (18:31)
[2017-08-27] MEDS ORDERED: HYDRALAZINE HCL INJ/PF 20 MG/1 ML SDV IV PRN (18:54)
[2017-08-27 19:03] LABS: INTERNATIONAL RATION (INR) 0.95; PROTHROMBIN TIME 13.4 SEC (11.4-15.4)
[2017-08-27 19:04] LABS: PARTIAL THROMBOPLASTIN TIME 31.3 SEC (23.5-35.8)
[2017-08-27 19:23] LABS: CREATINE KINASE MB 1.91 ng/mL (<4.55)
[2017-08-27 19:35] LABS: APPEARANCE,URINE CLEAR; BILIRUBIN,URINE NEGATIVE (NEGATIVE); COLOR,URINE STRAW; GLUCOSE, URINE NEGATIVE (NEGATIVE); KETONES,URINE NEGATIVE (NEGATIVE); LEUKOCYTE ESTERASE,URINE NEGATIVE (NEGATIVE); NITRITE,URINE NEGATIVE (NEGATIVE); PROTEIN,URINE NEGATIVE (NEGATIVE); URINE SPECIFIC GRAVITY 1.033; UROBILINOGEN,URINE NEGATIVE mg/dL (<2.0)
[2017-08-27 19:35] LABS: TROPONIN I 0.035 ng/mL
--- NOTE | 2017-08-27 20:26 | EKG REPORT ---
SEVERITY:- ABNORMAL ECG - ATRIAL FIBRILLATION, V-RATE 90-152 PROBABLE INFERIOR INFARCT, AGE INDETERMINATE BORDERLINE PROLONGED QT INTERVAL : Confirmed by: Kerline Gleason 27-Aug-2017 20:25:14
[2017-08-27] MEDS ORDERED: ENOXAPARIN SODIUM INJ 120 MG/0.8 ML DISP.SYRIN SUBCUT SCH (22:00)
[2017-08-27] MEDS ORDERED: ATORVASTATIN CALCIUM 10 MG TABLET PO SCH (22:00)
[2017-08-27] MEDS: GABAPENTIN 300 MG CAPSULE PO SCH (22:24)
[2017-08-27] MEDS: OXYCODONE HCL IR 5 MG TABLET PO PRN (22:24)
[2017-08-27] MEDS: FAMOTIDINE 20 MG TABLET PO SCH (22:25)
[2017-08-27] MEDS: ENOXAPARIN SODIUM INJ 120 MG/0.8 ML DISP.SYRIN SUBCUT SCH (22:25)
[2017-08-28 01:24] LABS: CREATINE KINASE MB 1.77 ng/mL (<4.55); TROPONIN I 0.03 ng/mL
[2017-08-28] MEDS: DILTIAZEM HCL/D5W 125 MG/125 ML RTUINJ IV PRN (01:47)
[2017-08-28] MEDS ORDERED: OXYCODONE HCL IR 5 MG TABLET PO ONE (04:31)
[2017-08-28 05:24] LABS: ABSOLUTE RETICS # 0.211 10^6/uL (0.028-0.122); HEMATOCRIT 29.1 % (37.9-51.0); HEMOGLOBIN 9.9 g/dL (13.5-17.0); MEAN CORPUSCULAR HEMOGLOBIN 31.5 pg (27.0-33.4); MEAN CORPUSCULAR VOLUME 93 fl (80-97); PLATELET COUNT 316 10^3/uL (150-450); RED BLOOD COUNT 3.14 10^6/uL (4.35-5.55); RED CELL DISTRIBUTION WIDTH 14.4 % (11.5-14.0); RETICULOCYTE COUNT (AUTO) 6.72 % (0.66-2.85); WHITE BLOOD COUNT 9.4 10^3/uL (4.0-10.5)
[2017-08-28 05:52] LABS: CREATINE KINASE MB 1.83 ng/mL (<4.55); TROPONIN I 0.03 ng/mL
[2017-08-28 05:55] LABS: CREATINE KINASE 41 U/L (55-170); IRON(TIBC) 63.3 ug/dL (49-181)
[2017-08-28] MEDS: GABAPENTIN 300 MG CAPSULE PO SCH ×3 (06:30→21:25)
[2017-08-28] MEDS: OXYCODONE HCL IR 5 MG TABLET PO PRN ×2 (08:43→15:59)
[2017-08-28] MEDS: INSULIN LISPRO 100 UNIT/ML 3 ML VIAL SUBCUT PRN (08:46)
[2017-08-28] MEDS: FAMOTIDINE 20 MG TABLET PO SCH ×2 (09:27→21:25)
[2017-08-28] MEDS: ENOXAPARIN SODIUM INJ 120 MG/0.8 ML DISP.SYRIN SUBCUT SCH (09:28)
[2017-08-28] MEDS: ASPIRIN 81 MG TABLET, ENT COATED PO SCH (09:28)
[2017-08-28] MEDS ORDERED: DULOXETINE HCL 30 MG CAPSULE.DR PO SCH (10:00)
[2017-08-28] MEDS ORDERED: LORAZEPAM 1 MG TABLET PO PRN (11:59)
--- NOTE | 2017-08-28 11:59 | PDOC PROGRESS REPORT ---
Subjective Progress Note for:: 08/28/17 Subjective:: The patient is a 72-year-old male with diabetes, hypertension and chronic back pain due to degenerative disc disease. He is currently followed in a pain clinic and has been opioid dependent for a prolonged period of time. The patient was admitted yesterday for new onset atrial fibrillation. Please note that the patient was admitted on 08/19/2017 and discharged on 08/23/2017. During his last hospitalization he was treated for an ileus which was felt to be secondary to narcotic use. The abdominal and CT scan demonstrated a large cyst and epiploic appendagitis. 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 1 of these was his antibiotic. Today, the patient feels well. He is not having any shortness of breath at rest. He denies palpitations or chest pain. He has been complaining of back pain throughout the night but his symptoms are tolerable. He has no bowel complaints. He does not have any nausea, vomiting or diarrhea at this time. Reason For Visit: NEW ONSET AFIB Physical Exam Vital Signs: Temp Pulse Resp BP Pulse Ox 98.2 F 84 20 140/74 H 100 08/28/17 07:25 08/28/17 07:25 08/28/17 07:25 08/28/17 09:01 08/28/17 07:25 Intake & Output 08/27/17 08/28/17 08/29/17 06:59 06:59 06:59 Intake Total 473 Balance 473 Additional comments: The patient is lying flat in bed. He does not appear to be in any distress. His cardiac exam is irregularly irregular. I do not appreciate any murmurs, gallops or rubs. The lungs are clear to auscultation bilaterally both anteriorly and posteriorly. The abdomen is soft. The abdomen is obese. He has a large midline scar. There is no guarding or rebound. The lower extremities are fairly warm to touch with only trace edema. Skin is warm dry and intact without lesions or rashes. Results Laboratory Results: 08/28/17 05:00 08/27/17 08/28/17 08/28/17 19:00 05:00 05:00 WBC 9.4 RBC 3.14 L Hgb 9.9 L Hct 29.1 L MCV 93 MCH 31.5 MCHC 34.0 RDW 14.4 H Plt Count 316 Retic Count (auto) 6.72 H Absolute Retic 0.211 H Iron 63.3 TIBC 382 % Saturation 17 Ferritin 70.30 Vitamin B12 637.0 Folate 13.60 Urine Color STRAW Urine Appearance CLEAR Urine pH 6.0 Ur Specific [place] 1.033 Urine Protein NEGATIVE Urine Glucose (UA) NEGATIVE Urine Ketones NEGATIVE Urine Blood NEGATIVE Urine Nitrite NEGATIVE Ur Leukocyte Esterase NEGATIVE Urine WBC (Auto) 0 08/27/17 08/27/17 08/28/17 18:45 18:45 00:30 Creatine Kinase 44 L 44 L CK-MB (CK-2) 1.91 Troponin I 0.035 08/28/17 08/28/17 08/28/17 00:30 05:00 05:00 Creatine Kinase 41 L CK-MB (CK-2) 1.77 1.83 Troponin I 0.030 0.030 Impressions: Chest X-Ray 08/27/17 14:14 IMPRESSION: NO ACUTE RADIOGRAPHIC FINDING IN THE CHEST. Chest/Abdomen CTA 08/27/17 16:00 IMPRESSION: No CT angio evidence of acute pulmonary emboli. No acute infiltrates or pleural effusions. Assessment & Plan - Diagnosis (1) New onset atrial fibrillation Is this a current diagnosis for this admission?: Yes Plan: Patient has mild anemia and is heme positive. However, he is only trace heme positive. Therefore, I am going to fully anticoagulate him at this time. We will monitor closely and reverse anticoagulation if needed. The patient is on a Cardizem drip for rate control. He will need an echocardiogram and a cardiology consult thyroid function studies will be done. Etiology could be withdrawal from opioids. Troponins are only slightly elevated. Check lipid panel. (2) Degenerative disc disease Is this a current diagnosis for this admission?: Yes Plan: Due to the patient's recent ileus, I will hold on high doses of chronic long- acting narcotics but will use low-dose agents for pain control. Told the patient today that his therapy should primarily consist of non-narcotic agents for pain control such as gabapentin and duloxetine. (3) Osteoarthritis of knee Is this a current diagnosis for this admission?: Yes Plan: See above. (4) Anemia Is this a current diagnosis for this admission?: Yes Plan: The patient's MCV is normal. He was recently in the hospital. He does not appear to be iron deficient. I am going to follow hemoglobins. He will need further evaluation for heme positive stools, particularly if he needs long-term anticoagulation. (5) Diabetes mellitus Qualifiers: Is this a current diagnosis for this admission?: Yes Plan: I have reviewed the patient's regimen. He generally takes glipizide, metformin , basal insulin. Due to the fact that he received IV contrast yesterday I will hold metformin. I will also hold the glipizide at this time. He will be treated with basal insulin and sliding scale. (6) Ileus Is this a current diagnosis for this admission?: No Plan: Follow for recurrence (7) Opioid dependence Is this a current diagnosis for this admission?: Yes Plan: See above. (8) colonic appendagitis Is this a current diagnosis for this admission?: No Plan: The patient was discharged on antibiotics. I am trying to track down the discharge summary. In any event the patient was discharged on Saturday and did not receive any additional antibiotics. Therefore, I have no plan to restart antibiotics at this time. - Time Time Spent with patient: 25-34 minutes - Inpatient Certification Medical Necessity: Need Close Monitoring Due to Risk of Patient Decompensation, Need For Continuous Telemetry Monitoring, Risk of Complication if Not Cared For in Hospital
[2017-08-28] MEDS ORDERED: METOPROLOL TARTRATE 50 MG TABLET PO SCH (12:00)
[2017-08-28] MEDS ORDERED: METOPROLOL TARTRATE 50 MG TABLET PO ONE (12:30)
[2017-08-28 12:43] LABS: FREE T4 (FREE THYROXINE) 1.71 ng/dL (0.78-2.19)
[2017-08-28 13:01] LABS: THYROID STIMULATING HORMONE 2.99 uIU/mL (0.47-4.68)
--- NOTE | 2017-08-28 18:10 | XCELERA REPORT ---
[address] [address] Transthoracic Echocardiogram Report Name: SATHISH ORNELAS Age: 72 yrs Gender: Male : 1945 Patient Status: Inpatient Patient Location: [address] [place] [address] Study Date: 08/28/2017 02:01 PM Height: 67 in Weight: 240 lb BSA: 2.2 m2 Procedure: A two-dimensional transthoracic echocardiogram with color flow and Doppler was performed. Study Quality: Fair. Reason For Study: ATRIAL FIBRILLATION History: ATRIAL FIBRILLATION. Ordering Physician: NESTOR MENDIETA Performed By: Angela Mahoney Interpretation Summary ATRIAL FIBRILLATION The left ventricle is normal in size. There is mild concentric left ventricular hypertrophy. LV EF is > THAN 65% Left ventricular systolic function is normal. The left ventricular wall motion is normal. There is no thrombus. The right ventricle is not well visualized secondary to technical limitations The right atrium is normal. The left atrium is mildly dilated. The interatrial septum is intact with no evidence for an atrial septal defect. There is no evidence of mitral valve prolapse. There is no vegetation seen on the mitral valve. There is no mitral valve stenosis. There is a moderate amount of mitral regurgitation There is no aortic valvular vegetation. There is no aortic valve stenosis There is no LVOT obstruction. No aortic regurgitation is present. There is no tricuspid stenosis. There is a mild amount of tricuspid regurgitation There is mild pulmonary hypertension by echo rvsp IS 41 TO 46 MM OF hG , WITH ra MEAN OF 5 TTO 10. There is no pulmonic valvular stenosis. There is a trace amount of pulmonic regurgitation The aortic root is normal size. The inferior vena cava appeared normal and decreased > 50% with respiration (RAP 5-10 mmHg) There is no pericardial effusion. MMode/2D Measurements & Calculations RVDd: 3.1 cm LVIDd: 5.6 cm FS: 42.0 % Ao root diam: 2.9 cm IVSd: 1.2 cm LVIDs: 3.3 cm EDV(Teich): 154.6 ml LVPWd: 1.0 cm ESV(Teich): 42.8 ml Ao root area: 6.4 cm2 EF(Teich): 72.3 % Doppler Measurements & Calculations MV E max bam: MV dec slope: Ao V2 max: LV V1 max P.4 cm/sec 147.9 cm/sec 4.7 mmHg MV A max bam: 739.3 cm/sec2 Ao max PG: LV V1 max: 103.7 cm/sec MV dec time: 8.7 mmHg 108.0 cm/sec MV E/A: 1.2 0.17 sec MR max bam: PA V2 max: PI end-d bam: TR max bam: 538.6 cm/sec 77.4 cm/sec 158.5 cm/sec 294.8 cm/sec MR max PG: PA max P.4 mmHg TR max P.0 mmHg 35.6 mmHg Left Ventricle There is mild concentric left ventricular hypertrophy. The left ventricle is normal in size. LV EF is > THAN 65%. Left ventricular systolic function is normal. LV diastolic function could not be adequately assessed due to atrial fibrilation. The left ventricular wall motion is normal. There is no thrombus. There is no ventricular septal defect visualized. Right Ventricle The right ventricle is not well visualized secondary to technical limitations. Atria The right atrium is normal. The left atrium is mildly dilated. The interatrial septum is intact with no evidence for an atrial septal defect. Mitral Valve There is mild mitral annular calcification. There is no evidence of mitral valve prolapse. There is no vegetation seen on the mitral valve. There is no mitral valve stenosis. There is a moderate amount of mitral regurgitation. Aortic Valve There is no aortic valvular vegetation. There is no aortic valve stenosis. There is no LVOT obstruction. No aortic regurgitation is present. Tricuspid Valve There is no tricuspid stenosis. There is a mild amount of tricuspid regurgitation. There is mild pulmonary hypertension by echo. rvsp IS 41 TO 46 MM OF hG , WITH ra MEAN OF 5 TTO 10. Pulmonic Valve There is no pulmonic valvular stenosis. There is a trace amount of pulmonic regurgitation. Great Vessels The aortic root is normal size. The inferior vena cava appeared normal and decreased > 50% with respiration (RAP 5-10 mmHg). Effusions There is no pericardial effusion. : NESTOR MENDIETA > Melva Bates
[2017-08-28] MEDS: APIXABAN 5 MG TABLET PO SCH (18:15)
[2017-08-28] MEDS: METOPROLOL TARTRATE 50 MG TABLET PO SCH (21:25)
[2017-08-28] MEDS ORDERED: ATORVASTATIN CALCIUM 10 MG TABLET PO SCH (22:00)
[2017-08-28] MEDS ORDERED: INSULIN GLARGINE,HUM.REC.ANLOG 300 UNIT/3 ML INSULN.PEN SUBCUT SCH (22:00)
--- NOTE | 2017-08-28 23:19 | CONSULTATION REPORT E ---
Consultation Report NAME: SATHISH ORNELAS : 1945 AGE: 72Y DATE: 08/28/2017 ROOM: 318 A TO: VIJAY DELCID M.D. FROM: FARIDA PARKS M.D. Requesting Physician REASON FOR CONSULTATION: New onset atrial fibrillation. HISTORY OF PRESENT ILLNESS: The patient is a 72-year-old male with a history of chronic back pain and with severe narcotic dependence, hypertension, and diabetes mellitus type 2 noninsulin dependent. He stated that he was very weak and could not get up off the floor. Although he did not lose consciousness and he is also having severe back pain. He denies any chest pain or discomfort. There is no syncope, presyncope, or dizziness. There is no leg edema. There is no chest pain or discomfort. He was brought into the emergency room where he was found to be hypoxic and also in atrial fibrillation with fast ventricular response and was placed on a Cardizem drip. At present the patient's heart rate is much well-controlled but the patient still continues to be in atrial fibrillation. He states that this is the first time he has been in atrial fibrillation. PAST MEDICAL HISTORY: Negative for any history of coronary artery disease, DE, or anginal symptoms. There is no history of congestive heart failure. This is the first episode of atrial fibrillation. The patient's [id number] score is 3 and, hence, the patient will benefit from chronic anticoagulation therapy. As mentioned earlier the patient has a history of diabetes mellitus type 2 noninsulin dependent, history of hypertension present which the patient claims is well-controlled. He has severe chronic back pain and is seen at the pain clinic and is severely opioid dependent. He has no history of thyroid disease. He has no history of chronic kidney disease. He has no history of TIA or CVA. There is no history of congestive heart failure. There are no palpitations, except this admission when he did have palpitations due to the atrial fibrillation. The patient about a week ago was admitted with abdominal pain and was diagnosed as having acute epiploica appendagitis and constipation secondary to usage of narcotics chronically. He also has a history of hyperlipidemia. In the past he has had necrotizing pancreatitis and had to have debridement of that and he had a pulmonary embolism after that, there is no recurrence of pulmonary embolism. His D-dimer was high and hence the patient had a CTA this admission which did not show any pulmonary emboli and no acute infiltrates. There is no history of anxiety or depression. PAST SURGICAL HISTORY: Positive for cholecystectomy. He has had a left knee replacement, tonsillectomy, and also debridement of the necrotizing pancreatitis. FAMILY HISTORY: Positive for diabetes mellitus, malignancy of the lungs, and congestive heart failure. DISPOSITION: The patient is a full code. His surrogate decision maker is his ex- and his present girlfriend, Ms. Tory Martinez. SOCIAL HISTORY: The patient quit smoking many years ago. There is no history of EtOH abuse, although he has had heavy alcohol intake in the past he has not had any alcohol and does not smoke cigarettes since 1992. REVIEW OF SYSTEMS: CONSTITUTIONAL: Complains of generalized fatigue and weakness. No fever, chills, or rigors. HEAD: Denies headaches or head injury. EYES: No history of amblyopia or diplopia. No history of amaurosis fugax. EARS: No history of hearing loss. No history of tinnitus. No history of vertigo. NOSE: No history of hay fever. No history of nosebleeds. No history of nasal polyps. MOUTH: No altered taste sensation. No ulcers in the mouth. No bleeding from the gums. THROAT: No odynophagia or dysphagia. No recurrent sore throats. SKIN: No pruritus. No psoriasis. No skin cancer. NECK: No symptoms of c-spine arthritis. No swelling in the neck. No goiter. LUNGS: No history of asthma or COPD. No history of sleep apnea. Past history of pulmonary embolism with no recurrence. He used to be on Coumadin at that time in the past. This was in 2013 after his debridement of a necrotizing pancreatitis. He has no history of pleuritic chest pain. No wheezing or symptoms suggestive of pneumonia. No upper or lower respiratory tract infection symptoms. CARDIAC: History of hypertension. No history of congestive heart failure. There is a new onset atrial fibrillation. He has no history of CAD, DE, or anginal symptoms. No leg edema. No PND, orthopnea. Note that the patient does not ambulate much because of his back. There is no leg edema, there is no dizziness or syncope. MUSCULOSKELETAL: Severe back pain due to degenerative disk disease but no history of rheumatoid arthritis. RENAL: No history of chronic kidney disease. No history of hematuria, pyuria, dysuria. No symptoms of UTI. ENDOCRINE: No history of thyroid disease. No history of polydipsia or polyuria. History of diabetes mellitus type 2 noninsulin dependent. No history of heat or cold intolerance. METABOLIC: History of hyperlipidemia present. The patient is moderately obese. GASTROINTESTINAL: No history of GERD. No history of GI bleed. History of constipation present off and on due to narcotic use. No history of fatty food intolerance. No history of jaundice or cirrhosis. No recurrence of abdominal pain since his last admission about a week ago for which he was admitted for abdominal pain but has not had any recurrence of the pain. CENTRAL NERVOUS SYSTEM: No history of TIA or CVA. No history of headaches, migraines, or seizures. No history of gait imbalance, although the patient found it very difficult to walk because of his severe back pain and generalized weakness. PSYCHIATRIC: No history of anxiety or depression. No history of suicidal ideation. No history of homicidal ideation. VASCULAR: No history of calf or buttock claudication. No history of DVT. HEMATOLOGICAL: No history of bleeding diathesis. No history of clotting disorder, but note that the patient has slight anemia although is ferritin and his serum iron and B12 and folate are within normal limits. The patient's reticulocyte count is high including the absolute reticulocyte count. Need to get stool guaiac for blood since the patient is being started on anticoagulation and also would get an LDH and serum amylase to make sure that the patient does not have hemolysis. ALLERGIES: 1. SULFA. 2. CIPROFLOXACIN. MEDICATIONS: 1. Lovenox 1 mg/kg subcutaneously q.12 hours. 2. Aspirin 81 mg p.o. daily. 3. Atorvastatin 10 mg p.o. at bedtime. 4. Hypoglycemic precaution with glutose 40% gel, 15 grams p.o. and 30 grams p.o. p.r.n., and also dextrose 50% 12.5 grams IV and 25 grams IV p.r.n. hypoglycemia. 5. Cymbalta 60 mg p.o. daily. 6. Pepcid 20 mg p.o. q.12 hours. 7. Neurontin 600 mg p.o. q.8 hours. 8. Glucagon 1 mg intramuscular p.r.n. hypoglycemia. 9. Hydralazine 20 mg IV q.6 hours p.r.n. 10. Insulin Lantus 37 units subcutaneously at bedtime. 11. Accu-Chek a.c., t.i.d., and bedtime with sliding scale insulin coverage. 12. Metoprolol 50 mg p.o. q.12 hours which has been held. 13. Cardizem drip at 10 mg per hour. 14. Zofran 4 mg IV q.8 hours p.r.n. 15. Oxycodone 10 mg p.o. x1 and 5 mg p.o. q.6 hours p.r.n. PHYSICAL EXAMINATION: GENERAL: On examination at present in no acute distress, although he complains of back pain. The patient is moderately obese. He is well-groomed. VITAL SIGNS: The patient is afebrile with a temperature of 97.7 degrees Fahrenheit. His pulse is 87 beats per minute, blood pressure is 137/76. His O2 saturations are 99% on half a liter of oxygen via nasal cannula. HEENT: Head is atraumatic, normocephalic. Eyes: Pupils are equal, round and regular, reactive to light and accommodation. Extraocular movements are normal. There is no conjunctival pallor. There is no scleral icterus. Ears: Tympanic membranes are intact, external auditory canals are clear. Nose: There is no deviated nasal septum. There is no inflammation of the nasal mucous membrane. There are no nasal polyps. Mouth: Mucous membranes of the mouth are moist, tongue is moist. There is no ulcer in the mouth. There is no bleeding from the gums. Throat: There is redness of the oropharynx. There are no exudates. SKIN: There is no skin rashes. There is no petechiae or ecchymosis. There are no skin lesions. NECK: Supple. There is no JVD. There is no lymphadenopathy. There is no goiter. Carotids are equal. There is no bruit. Trachea is central. LUNGS: Clear to auscultation and percussion. There is no chest wall tenderness. HEART: S1 and S2 is heard. S1 is variable intensity. There is no S3 gallop. There is no S4 gallop. There is murmur of mitral regurgitation present. There is no rub. ABDOMEN: Soft, obese, nontender. There is no hepatosplenomegaly. Bowel sounds are well heard. There are no tender areas or masses. EXTREMITIES: Femorals are deep. Femorals are diminished. Leg pulses are diminished. There is no pedal edema. There is no cyanosis or clubbing. There is no DVT or cellulitis. There is no calf tenderness. CENTRAL NERVOUS SYSTEM: The patient is conscious, awake, alert and oriented x3 with no focal deficits. There is no deficit. DIAGNOSTIC STUDIES: The patient's EKG yesterday shows atrial fibrillation with a ventricular response of 124 beats per minute. Doubt inferior DE in the past. Borderline prolonged QT interval. His EKG done today shows atrial fibrillation, ventricular response of 88 beats per minute, Q-waves in leads III and aVF, doubt that this is an old inferior wall DE. The patient's chest and abdominal CTA shows no CT angio evidence of acute pulmonary emboli, no acute infiltrates or pleural effusions. The patient's chest x-ray shows no acute radiographic findings. The patient's white count is 9400, hemoglobin is 9.9, and hematocrit is 29. His platelet count is 316,000. His reticulocyte count is 6.72, his absolute reticulocyte count is 0.211 which is high. His CPK-MBs are negative. His serial troponin I's are indeterminant/ negative. The patient's sodium is 140.7, potassium 4.2, chloride is 106, CO2 is 21. The patient's BUN is 23, creatinine is 1.18, GFR is greater than 60, glucose is 135, calcium is 9.4. The patient's liver function tests are normal. His NT-proBNP is 2930. His albumin is 3.4 and his total protein is 5.7. His serum iron is 63.3, TIBC is 382, percent saturation is 17, ferritin is 70.3, and his vitamin B12 is 637, folate is 13.60. His TSH is 2.99, free T4 is 1.71. IMPRESSION AND PLAN: 1. New onset atrial fibrillation, ventricular response seems to be much better. We will stop the patient's Cardizem drip and increase the patient's metoprolol to 75 mg p.o. q.12 hours. The patient has a [id number] of 3 and, hence, will benefit from benefit from chronic anticoagulation therapy. The patient does not want to be on Coumadin and, hence, we will start the patient on Eliquis 5 mg p.o. q.12 hours. In the meantime we will check the patient's stool occult blood and also since the patient's iron, ferritin, B12, and folate are normal we will check and LDH and serum aldolase to make sure that the patient is not having hemolysis. Also we will get stool occult blood to make sure. The patient is aware that with Coumadin if the INR is high or if the patient should bleed we could reverse it with vitamin K and fresh frozen plasma, this cannot be done with Eliquis, but the patient is still adamant and wants to be on Eliquis. 2. Hypertension, well-controlled. 3. Diabetes mellitus type 2, insulin dependent. Continue current therapy. 4. Chronic back pain. Continue pain medication. 5. Hyperlipidemia. 6. Obesity. Note that the patient denies any symptoms suggestive of obstructive sleep apnea. 7. Anemia with elevated reticulocyte count ? etiology. 8. Moderate mitral regurgitation by echocardiogram. We will follow with you. TIME SPENT: Note the patient was seen at 11:30 a.m. and 45 minutes spent on this patient with more than 50% of the time spent on direct patient care. His medications have been reviewed and adjusted. Also discussed with the patient, the patient's healthcare power of civil rights attorney - his ex- who is at the bedside. Discussed the management plan with the attending physician on the case. Note medical decision making is of a highly complex nature. Note subsequently the patient had an echocardiogram which showed the left ventricle is of normal size with mild concentric left ventricular hypertrophy. Left ventricular ejection fraction is greater than 65%. The wall motion is normal. There is no evidence of mitral valve prolapse. There is no vegetation on the mitral valve. There is no mitral valve stenosis. There is a moderate amount of mitral regurgitation. There is no aortic valvular vegetation. There is no aortic valve stenosis. There is no aortic regurgitation. There is a mild amount of tricuspid regurgitation. The right ventricular systolic pressure is 41-46 mmHg which is mild pulmonary hypertension. There is no pericardial effusion. This has been discussed with the patient. Note medical decision making is of high complexity. DICTATING PHYSICIAN: VIJAY DELCID M.D. [id number] Kyree#: [id number] ID: [id number] JOB#: [id number] ACCT: [id number] cc:VIJAY DELCID M.D. >
--- NOTE | 2017-08-28 23:19 | EKG REPORT ---
SEVERITY:- ABNORMAL ECG - ATRIAL FIBRILLATION, V-RATE 61-91 PROBABLE INFERIOR INFARCT, AGE INDETERMINATE : Confirmed by: Kerline Gleason 28-Aug-2017 23:18:36
[2017-08-29] MEDS: GABAPENTIN 300 MG CAPSULE PO SCH ×2 (05:34→14:39)
[2017-08-29 05:50] LABS: ANION GAP 7 (5-19); BLOOD UREA NITROGEN 21 mg/dL (7-20); CALCIUM 9.8 mg/dL (8.4-10.2); CARBON DIOXIDE 27 mmol/L (22-30); CHLORIDE 103 mmol/L (98-107); CHOLESTEROL 111.06 mg/dL (0-200); GLUCOSE 134 mg/dL (75-110); LDH 345 U/L (313-618); MAGNESIUM 1.5 mg/dL (1.6-2.3); POTASSIUM 4.3 mmol/L (3.6-5.0); SODIUM 137.4 mmol/L (137-145); TRIGLYCERIDES 236 mg/dL (<150)
[2017-08-29 06:00] LABS: DIRECT LDL 45 mg/dL (<100)
[2017-08-29 06:02] LABS: VLDL CHOLESTEROL 47.2 mg/dL (10-31)
[2017-08-29 06:04] LABS: FREE T4 (FREE THYROXINE) 1.45 ng/dL (0.78-2.19)
[2017-08-29 06:18] LABS: THYROID STIMULATING HORMONE 1.42 uIU/mL (0.47-4.68)
[2017-08-29] MEDS: ASPIRIN 81 MG TABLET, ENT COATED PO SCH (09:08)
[2017-08-29] MEDS: APIXABAN 5 MG TABLET PO SCH (09:09)
[2017-08-29] MEDS: FAMOTIDINE 20 MG TABLET PO SCH (09:09)
[2017-08-29] MEDS: METOPROLOL TARTRATE 50 MG TABLET PO SCH (09:09)
[2017-08-29 09:47] VITALS: BP 130/67
[2017-08-29] MEDS ORDERED: DULOXETINE HCL 30 MG CAPSULE.DR PO SCH (10:00)
[2017-08-29] MEDS: OXYCODONE HCL IR 5 MG TABLET PO PRN (11:07)
[2017-08-29] MEDS: MAGNESIUM SULFATE/D5W 1 GM/100 ML RTUPB IV SCH ×3 (11:10→14:39)
[2017-08-29] MEDS: INSULIN LISPRO 100 UNIT/ML 3 ML VIAL SUBCUT PRN (16:36)
--- NOTE | 2017-08-29 17:05 | EKG REPORT ---
SEVERITY:- ABNORMAL ECG - SINUS RHYTHM PROBABLE INFERIOR INFARCT, AGE INDETERMINATE : Confirmed by: Kerline Gleason 29-Aug-2017 17:04:42
--- NOTE | 2017-08-29 22:09 | PROGRESS NOTE E ---
Progress Note NAME: SATHISH ORNELAS : 1945 AGE: 72Y DATE: 08/29/2017 ROOM: 318 SUBJECTIVE: Note that the patient has converted to sinus rhythm. He denies any chest pain or discomfort. There is no PND, orthopnea. There is no ventricular arrhythmia seen. There is no bleeding on current Eliquis. The patient has no leg edema. There are no palpitations. There is no PND, orthopnea, chest pain or discomfort. There are no TIA or CVA symptoms. OBJECTIVE: GENERAL: On examination the patient is moderately obese, in no acute distress. He is well-groomed. VITAL SIGNS: He is afebrile with a temperature of 97.5 degrees Fahrenheit, pulse is 65 beats per minute, blood pressure 130/67, respirations are 15 per minute, and O2 saturations are 100% on room air. HEENT: Head is atraumatic, normocephalic. Eyes: Pupils are equal, round and regular, reactive to light and accommodation. Extraocular movements are normal. There is no conjunctival pallor. There is no scleral icterus. Ears: Tympanic membranes are intact, external auditory canals are clear. Nose: There is no deviated nasal septum. There is no inflammation of the nasal mucous membrane. Mouth: Mucous membranes of the mouth are moist, tongue is moist. There are no ulcers. There is no bleeding from the gums. Throat: There is no redness of the oropharynx. There are no exudates in the throat. SKIN: There is no skin rashes. There is no petechiae or ecchymosis. There are no skin lesions. NECK: Supple. There is no JVD. There is no lymphadenopathy. There is no goiter. Carotids are equal. There is no bruit. Trachea is central. LUNGS: Clear to auscultation and percussion. There is no chest wall tenderness. HEART: S1 and S2 is heard. There is no S4 gallop. S1 is of normal intensity. There is no S3 gallop. There is a systolic murmur in the left sternal border and the apex. There is no rub. ABDOMEN: Soft, obese, nontender. There is no hepatosplenomegaly. Bowel sounds are well heard. EXTREMITIES: Femorals are diminished. Leg pulses are diminished. There is no pedal edema. There is no cyanosis or clubbing. There is no DVT or cellulitis. There is no calf tenderness. CENTRAL NERVOUS SYSTEM: The patient is conscious, awake, alert and oriented x3 with no focal deficits. PSYCHIATRIC: The patient's judgment and insight are intact. His affect is normal. DIAGNOSTIC STUDIES: The patient's EKG done this morning shows sinus rhythm, Q-waves in lead III and aVF which are probably not significant. Doubt that the patient has an old inferior wall DE since he has good wall motion and contraction of the inferior wall on the echocardiogram. Note the echocardiogram report has been discussed with the patient again. The patient's sodium is 137.4, potassium 4.3, chloride is 103, CO2 is 27, BUN is 21, creatinine is 1.20, GFR is greater than 60, glucose is 134, calcium is 9.8, magnesium is 1.5. IMPRESSION: 1. PAROXYSMAL ATRIAL FIBRILLATION CONVERTED TO SINUS RHYTHM. Would continue the patient on chronic anticoagulation with Eliquis and continue metoprolol 75 mg p.o. q.12 hours. Would recommend that the patient have an outpatient stress test, a Lexiscan Cardiolite, and also we will get a 30 day event monitor. 2. HYPOMAGNESEMIA. Note that the patient's magnesium is being replaced. 3. HYPERTENSION, WELL-CONTROLLED. 4. DIABETES MELLITUS TYPE 2, INSULIN DEPENDENT. Continue current therapy. 5. CHRONIC BACK PAIN. Continue pain medication. 6. HYPERLIPIDEMIA. 7. OBESITY. Note that the patient denies any symptom of obstructive sleep apnea. 8. ANEMIA WITH ELEVATED RETICULOCYTE COUNT. There is no evidence of obvious bleeding. 9. MODERATE MITRAL REGURGITATION BY ECHOCARDIOGRAM. RECOMMENDATIONS: The patient will be discharged today. The patient will follow up with me as an outpatient. I have discussed that my cell phone number has been given to the patient and he will call me if there should be any problems. We will schedule the patient to have a 30 day event monitor and also we will schedule the patient to have an IV Lexiscan Cardiolite as an outpatient. TIME SPENT: Note 30 minutes spent on this patient including discussion of the patient's conversion to sinus rhythm and the need to watch out for bleeding, especially if stools *------* and notify me immediately if that should happen on Eliquis. Also having discussed with the patient that dose of metoprolol has been increased. Note the medications have been reviewed and discussed with the patient including the changes. The patient's magnesium is being replaced and he will be discharged after that. Discussed with the attending physician on the case and other providers on the case and formulated a plan of care as an outpatient. The patient for continuity of care prefers to follow up with me, hence, we will get him an appointment. Note medical decision making is of high complexity. We will sign off the case. We will follow the patient as an outpatient. DICTATING PHYSICIAN: VIJAY DELCID M.D. [id number] PHY#: [id number] ID: [id number] JOB#: [id number] ACCT: [id number] cc: >
--- NOTE | 2017-08-29 22:45 | Physician Advisory Note ---
Physician Advisor ProgressNote .: Pursuant to the plan for [facility], I have reviewed the medical record for this patient. Physician Advisor Statement: Please consider documenting the most likely type/cause of anemia. Thanks! CK
--- NOTE | 2017-08-30 07:48 | PDOC DISCHARGE SUMMARY ---
General - Admit/Disc Date/PCP Admission Date/Primary Care Provider: 08/27/17 17:50 WINSOME WALL MD Cardiology: Dr. Bates Discharge Date: 08/29/18 - Discharge Diagnosis (1) New onset atrial fibrillation Is this a current diagnosis for this admission?: Yes Summary: Started on Eliquis. Converted to NSR. Metoprolol increased. (2) Iron deficiency anemia Is this a current diagnosis for this admission?: Yes (3) Degenerative disc disease Is this a current diagnosis for this admission?: Yes (4) Hypertension Is this a current diagnosis for this admission?: Yes Summary: Lisinopril dose reduced from 10 mg to 5 mg po daily, Amlodipine stopped given increased Metoprolol dose from 50 to 75 mg BID (5) Ileus Is this a current diagnosis for this admission?: No (6) Opioid dependence Is this a current diagnosis for this admission?: Yes (7) colonic appendagitis Is this a current diagnosis for this admission?: No (8) Hypomagnesemia Is this a current diagnosis for this admission?: Yes - Additional Information Resuscitation Status: Full Code Discharge Diet: Diabetic Discharge Activity: Activity As Tolerated Prescriptions: Apixaban [Eliquis 5 mg Tablet] 5 mg PO BID 30 Days #60 tablet Lisinopril 5 mg PO DAILY 30 Days #30 tablet Magnesium Oxide [Mag-Ox 400 mg Tablet] 400 mg PO DAILY 90 Days #90 tablet Metoprolol Tartrate [Lopressor 50 mg Tablet] 75 mg PO Q12 30 Days #60 tablet Home Medications: Atorvastatin Calcium [Lipitor 10 mg Tablet] 10 mg PO QHS 08/27/17 Duloxetine HCl [Cymbalta] 60 mg PO DAILY 08/27/17 Gabapentin [Neurontin 300 mg Capsule] 600 mg PO Q8 08/27/17 Glipizide [Glipizide ER] 5 mg PO DAILY 08/27/17 Insulin Glargine,Hum.rec.anlog [Lantus Solostar] 37 units SQ QHS 08/27/17 Lorazepam [Ativan 1 mg Tablet] 1 mg PO HSP PRN 08/27/17 Metformin HCl [Glucophage] 1,000 mg PO BID 08/27/17 Oxycodone HCl 15 mg PO Q6HP PRN 08/27/17 Apixaban [Eliquis 5 mg Tablet] 5 mg PO BID 30 Days #60 tablet 01/18/18 Lisinopril 5 mg PO DAILY 30 Days #30 tablet 08/29/17 Magnesium Oxide [Mag-Ox 400 mg Tablet] 400 mg PO DAILY 90 Days #90 tablet Metoprolol Tartrate [Lopressor 50 mg Tablet] 75 mg PO Q12 30 Days #60 tablet Oxycodone HCl [Oxy-Ir 5 mg Tablet] 5 mg PO Q6HP PRN tablet 08/29/17 History of Present Illness History of Present Illness: SATHISH ORNELAS is a 72 year old male with diabetes, hypertension and chronic back pain due to degenerative disc disease. He is currently followed in a pain clinic and has been opioid dependent for a prolonged period of time. The patient was was admitted on 08/27/17 with new onset atrial fibrillation. He had been admitted on 08/19/2017 and discharged on 08/23/2017. During his last hospitalization he was treated for an ileus which was felt to be secondary to narcotic use. The abdominal and CT scan demonstrated a large cyst and epiploic appendagitis, he was discharged by the surgical service with antibiotics. Hospital Course Hospital Course: He was treated with Cardizem gtt and Metoprolol dose was increased. He was started on Eliquis for anticoagulation. The patient was also seen by the Cardiology service. Transthoracic echo showed no thrombus. LV EF was 60%. Stools were trace heme positive, no overt bleeding. He is to follow up with his PCP for evaluation of his anemia. He was discharged on 08/29/17 Physical Exam Vital Signs: Temp Pulse Resp BP Pulse Ox 97.5 F 62 15 130/67 H 100 08/29/17 16:29 08/29/17 16:29 08/29/17 16:29 08/29/17 08:36 08/29/17 16:29 Intake & Output 08/29/17 08/30/17 08/31/17 06:59 06:59 06:59 Intake Total 2645 Output Total 2175 Balance 470 Weight 98.9 kg General appearance: PRESENT: no acute distress Head exam: PRESENT: atraumatic, normocephalic Eye exam: ABSENT: scleral icterus Ear exam: PRESENT: normal external ear exam Respiratory exam: PRESENT: clear to auscultation michela, unlabored Cardiovascular exam: PRESENT: RRR GI/Abdominal exam: PRESENT: soft. ABSENT: tenderness Results Laboratory Results: 08/28/17 05:00 08/29/17 04:28 08/28/17 05:00 Transferrin 289 08/27/17 08/27/17 08/28/17 18:45 18:45 00:30 Creatine Kinase 44 L 44 L CK-MB (CK-2) 1.91 Troponin I 0.035 08/28/17 08/28/17 08/28/17 00:30 05:00 05:00 Creatine Kinase 41 L CK-MB (CK-2) 1.77 1.83 Troponin I 0.030 0.030 Impressions: Chest X-Ray 08/27/17 14:14 IMPRESSION: NO ACUTE RADIOGRAPHIC FINDING IN THE CHEST. Chest/Abdomen CTA 08/27/17 16:00 IMPRESSION: No CT angio evidence of acute pulmonary emboli. No acute infiltrates or pleural effusions. Plan Time Spent: Greater than 30 Minutes
[2017-08-30] MEDS ORDERED: MAGNESIUM OXIDE 400 MG TABLET PO SCH (10:00)
== END 2017-08-29 17:00 | disposition home or self-care (01) | DRG 310 ==
LOC: ER 13:50 → EH 17:50 → 3W 08-28 05:42
PROVIDERS: ADMIT Internal Medicine; ATTEND Internal Medicine
DX: I48.91 Unspecified atrial fibrillation (principal); D50.9 Iron deficiency anemia, unspecified; I10 Essential (primary) hypertension; Z79.02 Long term (current) use of antithrombotics/antiplatelets; G89.29 Other chronic pain; E83.42 Hypomagnesemia; M54.9 Dorsalgia, unspecified; Z79.891 Long term (current) use of opiate analgesic; E11.9 Type 2 diabetes mellitus without complications; M17.10 Unilateral primary osteoarthritis, unspecified knee; I34.0 Nonrheumatic mitral (valve) insufficiency; K63.89 Other specified diseases of intestine; E66.9 Obesity, unspecified; L40.9 Psoriasis, unspecified; Z79.899 Other long term (current) drug therapy; Z86.711 Personal history of pulmonary embolism; Z90.49 Acquired absence of other specified parts of digestive tract; Z83.3 Family history of diabetes mellitus; Z80.1 Family history of malignant neoplasm of trachea, bronchus and lung; Z88.2 Allergy status to sulfonamides; Z88.1 Allergy status to other antibiotic agents; Z79.4 Long term (current) use of insulin; Z68.34 Body mass index [BMI] 34.0-34.9, adult; R19.5 Other fecal abnormalities; Z87.891 Personal history of nicotine dependence
CPT/HCPCS: 36415; 71045; 71275; 80048; 80053; 80061; 81001; 82085; 82272; 82550; 82553; 82607; 82728; 82746; 82962; 83540; 83550; 83615; 83735; 83880; 84439; 84443; 84466; 84481; 84484; 85025; 85027; 85045; 85610; 85730; 93005; 93010; 93306; 96361; 96365; 96366; 96376; 99291; J1650; J1815; J3475; J3490; J7030